=== PATIENT | female | born 1950 | race Caucasian/White ===

== ENCOUNTER → 2020-07-06 08:01 | Outpatient (CLI) | payer OTHER, SELFPAY ==
[2020-07-06 08:53] LABS: Cholesterol 264 mg/dL (140-199); HDL Cholesterol 60 mg/dL (40-60); LDL Cholesterol Calculated 194 mg/dL (<100); Triglycerides 49 mg/dL (35-150)
== END ==
PROVIDERS: PCP Nurse Practitioner; Referring Provider Nurse Practitioner; Visit Provider Nurse Practitioner
DX: E78.2 Mixed hyperlipidemia (principal); E03.9 Hypothyroidism, unspecified
CPT/HCPCS: 36415; 80061; 84443

== ENCOUNTER → 2020-07-28 12:40 | Outpatient (CLI) | payer OTHER, SELFPAY | PROVIDERS: PCP Nurse Practitioner; Referring Provider Nurse Practitioner; Visit Provider Nurse Practitioner | DX: Z13.820 Encounter for screening for osteoporosis (principal); M85.88 Other specified disorders of bone density and structure, other site; Z78.0 Asymptomatic menopausal state; E07.9 Disorder of thyroid, unspecified | CPT/HCPCS: 77080 ==

== ENCOUNTER → 2020-08-06 17:01 | Outpatient (CLI) | payer OTHER, SELFPAY ==
--- NOTE | 2020-08-06 17:04 | DI.MG.S_ITS ---
BILATERAL DIGITAL SCREENING MAMMOGRAM 3D/2D WITH CAD: 08/06/2020 CLINICAL: Routine screening. Comparison is made to exams dated: 12/03/2018 mammogram, 12/01/2017 mammogram, 11/21/2016 mammogram, 10/13/2014 mammogram, and 10/14/2015 mammogram - [facility]. There are scattered fibroglandular elements in both breasts. Current study was also evaluated with a Computer Aided Detection (CAD) system. There is a mole marker on both breasts. No significant masses, calcifications, or other findings are seen in either breast. There has been no significant interval change. IMPRESSION: NEGATIVE There is no mammographic evidence of malignancy. A 1 year screening mammogram is recommended. This exam was interpreted at Station ID: [id number]. NOTE: For mammograms, a report in lay terms will be sent to the patient. Approximately 15% of breast malignancies will not be visualized mammographically. In the management of a palpable breast mass, a negative mammogram must not discourage biopsy of a clinically suspicious lesion. Electronically Signed By: Chinmay [email or web address]/[email or web address]:08/07/2020 07:54:15 letter sent: Normal Exam ACR BI-RADS Category 1: Negative [id number]
== END ==
PROVIDERS: PCP Nurse Practitioner; Referring Provider Nurse Practitioner; Visit Provider Nurse Practitioner
DX: Z12.31 Encounter for screening mammogram for malignant neoplasm of breast (principal)
CPT/HCPCS: 77063; 77067

== ENCOUNTER → 2020-10-02 08:01 | Outpatient (CLI) | payer OTHER, SELFPAY ==
[2020-10-02 08:45] LABS: Cholesterol 259 mg/dL (140-199); HDL Cholesterol 55 mg/dL (40-60); LDL Cholesterol Calculated 191 mg/dL (<100); Triglycerides 64 mg/dL (35-150)
== END ==
PROVIDERS: PCP Nurse Practitioner; Referring Provider Nurse Practitioner; Visit Provider Nurse Practitioner
DX: E78.5 Hyperlipidemia, unspecified (principal)
CPT/HCPCS: 36415; 80061

== ENCOUNTER → 2020-11-26 15:55 | Outpatient (CLI) | payer OTHER, SELFPAY ==
[2020-11-26 16:59] LABS: BUN Creatinine Ratio 28.9 (6-22); Blood Urea Nitrogen 24 mg/dL (7-17); Calcium 9.6 mg/dL (8.4-10.2); Carbon Dioxide 33 mmol/L (22-32); Chloride 104 mmol/L (98-107); Estimated Glomerular Filt Rate > 60.0 mL/min (>60); Glucose 86 mg/dL (80-110); HEMOLYSIS < 15 (0-50); Potassium 4.1 mmol/L (3.4-5.1); Sodium 138 mmol/L (137-145)
== END ==
PROVIDERS: PCP Nurse Practitioner; Referring Provider Nurse Practitioner; Visit Provider Nurse Practitioner
DX: Z01.818 Encounter for other preprocedural examination (principal)
CPT/HCPCS: 36415; 80048

== ENCOUNTER → 2020-11-27 07:56 | Outpatient (CLI) | payer OTHER, SELFPAY ==
--- NOTE | 2020-11-27 08:10 | DI.CT.S_ITS ---
PROCEDURE: CT HEAD/BRAIN WO/W CON INDICATIONS: visual changes, loss of concentration TECHNIQUE: 4.5 mm thick angled axial sections acquired from the foramen magnum to the vertex both before and after the administration of intravenous contrast, with coronal and sagittal reformats. For radiation dose reduction, the following was used: automated exposure control, adjustment of mA and/or kV according to patient size. COMPARISON: [facility], CT, HEAD WITHOUT CONTRAST, 04/06/2015, 17:00. FINDINGS: Image quality: Excellent. CSF spaces: Basal cisterns are patent. No extra-axial fluid collections. Ventricles are symmetric in size and shape. Brain: No midline shift. No intracranial bleeds or masses. No abnormal intracranial enhancement. There is mild cerebral volume loss for age. There is mild periventricular white matter chronic small vessel ischemic change. There is intracranial internal carotid artery atherosclerosis. Skull and face: Calvarium and visualized facial bones appear intact, without suspicious lesions. Sinuses: Visualized sinuses and mastoids are clear. IMPRESSION: 1. No acute intracranial abnormalities. 2. Mild cerebral volume loss and chronic microvascular ischemic changes. Dictated by: Rome Deleon M.D. on 11/27/2020 at 8:46 Approved by: Rome Deleon M.D. on 11/27/2020 at 8:48
== END ==
PROVIDERS: PCP Nurse Practitioner; Referring Provider Nurse Practitioner; Visit Provider Nurse Practitioner
DX: H54.7 Unspecified visual loss (principal); R41.840 Attention and concentration deficit
CPT/HCPCS: 70470; Q9967

== ENCOUNTER 2020-12-31 08:15 | Outpatient (RCR) | payer OTHER, SELFPAY ==
--- NOTE | 2020-11-19 16:32 | PT.OIE ---
Current Diagnoses Unspecified urinary incontinence (11/19/20) Frequency of micturition (11/19/20) Past Medical History (Last Updated 10/06/20 @ 15:23 by KULWINDER Mansfield) Cardiac murmur, unspecified Excess ear wax Hyperlipidemia LDL goal <100 Hypothyroidism Infection, fungal, left foot Malaria (~1959) Measles (~1957) Mixed hyperlipidemia Mumps (~1957) Osteopenia after menopause Osteoporosis without current pathological fracture Plantar warts (~1999) Post-menopausal osteoporosis Skin problem (~2017) Urinary frequency Urinary incontinence Past Surgical History (Last Reviewed 10/06/20 @ 14:36 by KULWINDER Mansfield) Anesthesia History of appendectomy (~1954) History of cholecystectomy (~1982) History of hand surgery (~1990) History of removal of cyst (~2014) History of surgery (~1984) Hx of tonsillectomy Visit Care Team Role Provider Type KULWINDER Mans[place] Attending Provider Advanced Ui Ux Engineer Primary Care Provider Referring Provider Specialty: [facility] Address: [address] [place] [address], [facility] Email: [email or web address] Physical Therapy Initial Evaluation PT-OP-A Visit Information Start: 11/13/20 18:46 Freq: Status: Active Protocol: Document 11/19/20 08:16 LRN (Rec: 11/19/20 09:46 LRN [id number]) Out-Patient Physical Therapy Visit Information Visit Information Visit Type Initial Evaluation Visit Start Time 08:16 Visit Stop Time 09:00 Total Visit Minutes 44 Visit Number 1 Evaluation Information Evaluation Date 11/19/20 Precautions Precautions Neck pain Osteopenia Hypothyroid, PT-OP-B Current Condition Start: 11/13/20 18:46 Freq: Status: Active Protocol: Document 11/19/20 08:16 LRN (Rec: 11/19/20 09:46 LRN [id number]) Current Condition History of Current Condition Onset Date 1 year ago. Current Complaints urinary leakage after voiding and at night, & nighttime voiding. History of Current Condition Gets up 2-3x/night, has a little moisture on her underwear during the night and has dribbling after urinating . Prior Treatments and Tests None. Future Testing and Treatments Planned None Developmental History Developmental History When urinate and wipe, gets a drop or 2 more. Also, at night sometimes she notices a little bit of moisture on her underwear. Also she is getting up multiple times of the night. Has not given childbirth. No pregnancies. Lives [place] with spouse. Treatment Goals Patient/Caregiver Goals Pt goal is to deal with the urinary dripping and cut down on the amount of time getting up at night and be able to go back to sleep. Prior Functional Status Baseline Function- ADL's Independent Baseline Function- Mobility Independent Current Functional Impairments (Reported) Functional Limitations- ADL's Getting up too many times at night she is fatigued during the day. 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 Personal Factors Other Personal Factors That May Effect Hx of Gall bladder surgery Therapy/Recovery with visible well healed long scar on abdomen. Decreased normal exercise activity level due to COVID pandemic. PT-OP-C Subjective Start: 11/13/20 18:46 Freq: Status: Active Protocol: Document 11/19/20 08:16 LRN (Rec: 11/19/20 09:46 LRN [id number]) Patient Questionnaires Pelvic Pain and Urgency/Frequency Patient Symptom Scale Pelvic Pain Score 12 OP-PT Pain Assessment Comments Pain Comments No pain PT-OP-I Pelvic Floor Start: 11/13/20 18:46 Freq: Status: Active Protocol: Document 11/19/20 08:16 LRN (Rec: 11/19/20 09:46 LRN [id number]) Pelvic Floor Assessment Urine Urinary Symptoms Dribbling After Urination Other Urinary Symptoms Leaks sometimes upon standing after urinating, during the night. Leakage Size Small Leaks Per Day intermittent Voiding Frequency 4-5x/day Nocturia 2-3x/night Pads Used In 24 Hours none Bowel Bowel Surgery No Other Bowel Symptoms Sometimes, 1-2x/week because not walking enough. Bowel Movement Frequency Inconsistent, 1-2x/day and sometimes skips a day. [place]osh Stool Chart Comments Stools types vary sometimes 2, 4, or 6. PT-OP-J Posture/Palpation/Skin Start: 11/13/20 18:46 Freq: Status: Active Protocol: Document 11/19/20 08:16 LRN (Rec: 11/19/20 09:46 LRN [id number]) Posture Evaluation Position Standing Evaluation View all positions Head/C-Spine Posture Neutral Position L-Spine Posture Increased Lordosis Shoulder Posture (L) Elevated Comments Posture Comments Tight clothing around waist. Gall bladder scar (midline 2 below Xyphoid process, to L lower abdomen), pants slightly rotated left. PT-OP-K Range of Motion Start: 11/13/20 18:46 Freq: Status: Active Protocol: Document 11/19/20 08:16 LRN (Rec: 11/19/20 09:46 LRN [id number]) Lumbar Spine Range of Motion Lumbar Spine Active Degrees Testing Position Standing Flexion 100 Extension 20 Lateral Flexion Left 10 Lateral Flexion Right 10 Comments With Trunk flexion, hip flexion is 60 deg's, With Trunk extension, hip extension is 5 deg's. Hip Goniometric Range of Motion Hip Right Passive Straight Leg Raise 85 Extension 5 Internal Rotation 50 External Rotation 45 Comments + Jame Test Left Passive Straight Leg Raise 85 Extension 5 Internal Rotation 55 External Rotation 30 Comments + Jame Test PT-OP-M Strength Start: 11/13/20 18:46 Freq: Status: Active Protocol: Document 11/19/20 08:16 LRN (Rec: 11/19/20 09:46 LRN [id number]) Trunk Strength Trunk Manual Muscle Testing Testing Position Supine Core Stabilization Pt able to stabilize core from rotation with MMT of LE's. Hip Strength Hip Manual Muscle Testing Right Flexion (L2) 3+ Fair+ Extension (S1) 3+ Fair+ Abduction 3 Fair Adduction 5 Normal External Rotation 5 Normal Internal Rotation 5 Normal Left Flexion (L2) 3+ Fair+ Extension (S1) 3+ Fair+ Abduction 4+ Good+ Adduction 5 Normal External Rotation 5 Normal Internal Rotation 5 Normal PT-OP-Q Treatments Start: 11/13/20 18:46 Freq: Status: Active Protocol: Document 11/19/20 08:16 LRN (Rec: 11/19/20 09:46 LRN [id number]) Self-Care/Home Management Treatment Education Other Education Discussed results of evaluation, goals & POC. Educated pt in use of Bladder Diary and discussed specifics of completing (specifics of headings: counting of urination time, foods/drinks, etc). Educated pt in how bowels, trunk/hip mobility and strength impact PF stability and strength. Activities Self-Care/Home Management Activities Issued Bladder Diary with I/S for pt to complete 7 consecutive days. PT-OP-T Assessment and Plan Start: 11/13/20 18:46 Freq: Status: Active Protocol: Document 11/19/20 08:16 LRN (Rec: 11/19/20 09:46 LRN [id number]) Physical Therapy Assessment Rehab Potential Rehabilitation Potential Good Evaluation Complexity Number of Personal Factors/Comorbidities 1-2 Number of Body Systems Impaired 3 Clinical Presentation at Evaluation Evolving Impairments Impairments ROM,Soft Tissue Mobility, Strength,Transfers Other Impairments Urinary leakage after voiding and at nighttime, and increased nighttime voiding causing sleep disturbance and effecting daytime mental abilities. Goals Four Impairment Difficulty getting back to sleep after nighttime urination. Short Term Goal (STG) Educate pt on deep breathing relaxation techniques for pt to be able to return to sleep after getting up to urinate at nighttime. STG Duration 12/29/19 Dermatopathologist Goal (LTG) Pt will be able to return to sleep after nighttime voiding with less mental fatigue in the daytime due to lack of sleep from nighttime voiding. LTG Duration 02/17/21 Three Impairment Nighttime sleep disturbance (2 -3x/night) Short Term Goal (STG) Pt educated in foods/drinks to avoid and in urinary delay technique for bladder retraining. STG Duration 12/29/19 Dermatopathologist Goal (LTG) Decrease nighttime frequency to no more than 1x/night. LTG Duration 02/17/21 Two Impairment Urinary dribbling after initial voiding. Short Term Goal (STG) Educate pt in PF relaxation during voiding for full voiding after urinating to eliminate urinary dribbling on standing immediately after urinating, . STG Duration 12/29/19 Senior Care Goal (LTG) PF strength no less than 4/5 with pt no longer leaking at nighttime. LTG Duration 02/17/21 One Impairment Pt lacks appropriate self care HEP. Senior Care Goal (LTG) Pt will be independent in a self care HEP. LTG Duration 02/17/21 Assessment Summary Assessment Pt presents with urinary leakage after voiding and increased frequency of and minor urinary leakage at nighttime, causing pt to feel mentally fatigued during the day. The pt also indicates episodes of constipation that may be hindering her ability to remain continent during the day and increasing her nighttime voiding. The pt will benefit from skilled physical therapy for education in proper PF and bowel care, fluid management, and PF strengthening and relaxation. Physical Therapy Plan Frequency and Duration Frequency of Treatment 1x/Week Plan of Care Start Date 11/19/20 Plan of Care End Date 02/17/21 Therapeutic Interventions Therapeutic Interventions Home Exercise Program,Manual Therapy,Neuromuscular Re- education,Patient/Caregiver Education,Self-Care/Home Management,Soft Tissue Mobilization,Therapeutic Activities,Therapeutic Exercises Next Visit Focus/Plan Next Note Type Treatment Note Next Visit Plan Appropriate education after review of Bladder Diary, Assess PF strength and add appropriate HEP, abdominal STM & PF coordination with deep breathing, educate in proper deep breathing, PF training for relaxation and strengthening (quick flicks/ long holds), education in bowel massage, and PF strengthening/relaxation. EMG Biofeedback study for PF strength if needed.
--- NOTE | 2020-11-19 16:33 | PT.OPPOC ---
Physical, Occupational & Speech Therapy At [facility] Current Diagnoses Unspecified urinary incontinence (11/19/20) Frequency of micturition (11/19/20) Visit Care Team Role Provider Type KULWINDER [place] Attending Provider Advanced Executive Account Manager Primary Care Provider Referring Provider Specialty: Family Practice Address: [address] [place] [address], [facility] Email: [email or web address] Plan Of Care PT-OP-T Assessment and Plan Start: 11/13/20 18:46 Freq: Status: Active Protocol: Document 11/19/20 08:16 LRN (Rec: 11/19/20 09:46 LRN [id number]) Physical Therapy Assessment Rehab Potential Rehabilitation Potential Good Evaluation Complexity Number of Personal Factors/Comorbidities 1-2 Number of Body Systems Impaired 3 Clinical Presentation at Evaluation Evolving Impairments Impairments ROM,Soft Tissue Mobility, Strength,Transfers Other Impairments Urinary leakage after voiding and at nighttime, and increased nighttime voiding causing sleep disturbance and effecting daytime mental abilities. Goals Four Impairment Difficulty getting back to sleep after nighttime urination. Short Term Goal (STG) Educate pt on deep breathing relaxation techniques for pt to be able to return to sleep after getting up to urinate at nighttime. STG Duration 12/29/19 Player Development Executive Goal (LTG) Pt will be able to return to sleep after nighttime voiding with less mental fatigue in the daytime due to lack of sleep from nighttime voiding. LTG Duration 02/17/21 Three Impairment Nighttime sleep disturbance (2 -3x/night) Short Term Goal (STG) Pt educated in foods/drinks to avoid and in urinary delay technique for bladder retraining. STG Duration 12/29/19 Player Development Executive Goal (LTG) Decrease nighttime frequency to no more than 1x/night. LTG Duration 02/17/21 Two Impairment Urinary dribbling after initial voiding. Short Term Goal (STG) Educate pt in PF relaxation during voiding for full voiding after urinating to eliminate urinary dribbling on standing immediately after urinating, . STG Duration 12/29/19 Player Development Executive Goal (LTG) PF strength no less than 4/5 with pt no longer leaking at nighttime. LTG Duration 02/17/21 One Impairment Pt lacks appropriate self care HEP. Fdc Goal (LTG) Pt will be independent in a self care HEP. LTG Duration 02/17/21 Assessment Summary Assessment Pt presents with urinary leakage after voiding and increased frequency of and minor urinary leakage at nighttime, causing pt to feel mentally fatigued during the day. The pt also indicates episodes of constipation that may be hindering her ability to remain continent during the day and increasing her nighttime voiding. The pt will benefit from skilled physical therapy for education in proper PF and bowel care, fluid management, and PF strengthening and relaxation. Physical Therapy Plan Frequency and Duration Frequency of Treatment 1x/Week Plan of Care Start Date 11/19/20 Plan of Care End Date 02/17/21 Therapeutic Interventions Therapeutic Interventions Home Exercise Program,Manual Therapy,Neuromuscular Re- education,Patient/Caregiver Education,Self-Care/Home Management,Soft Tissue Mobilization,Therapeutic Activities,Therapeutic Exercises Next Visit Focus/Plan Next Note Type Treatment Note Next Visit Plan Appropriate education after review of Bladder Diary, Assess PF strength and add appropriate HEP, abdominal STM & PF coordination with deep breathing, educate in proper deep breathing, PF training for relaxation and strengthening (quick flicks/ long holds), education in bowel massage, and PF strengthening/relaxation. EMG Biofeedback study for PF strength if needed. Plan of Care Dates Plan of Care Start Date 11/19/20 Plan of Care End Date 02/17/21 Electronically Signed by: Wanda Daivs, PT 11/20/20 [id number] Please Sign and Return: I have reviewed this Plan of Care and certify that the skilled therapy services above are required to meet the patient?s needs. Physician Signature Date Printed Name and Credentials Clinical Instructor Signature Printed Name and Credentials
--- NOTE | 2020-11-26 12:12 | PT.OTN ---
Current Diagnoses Unspecified urinary incontinence (11/26/20) Frequency of micturition (11/26/20) Physical Therapy Treatment Note PT-OP-A Visit Information Start: 11/13/20 18:46 Freq: Status: Active Protocol: Document 11/26/20 08:17 LRN (Rec: 11/26/20 09:05 LRN [id number]) Out-Patient Physical Therapy Visit Information Visit Information Visit Type Treatment Note Visit Start Time 08:17 Visit Stop Time 09:05 Total Visit Minutes 48 Visit Number 2 Evaluation Information Evaluation Date 11/19/20 Precautions Precautions Neck pain Osteopenia Hypothyroid, PT-OP-B Current Condition Start: 11/13/20 18:46 Freq: Status: Active Protocol: Document 11/19/20 08:16 LRN (Rec: 11/19/20 09:46 LRN [id number]) Current Condition History of Current Condition Onset Date 1 year ago. Current Complaints urinary leakage after voiding and at night, & nighttime voiding. History of Current Condition Gets up 2-3x/night, has a little moisture on her underwear during the night and has dribbling after urinating . Prior Treatments and Tests None. Future Testing and Treatments Planned None Developmental History Developmental History When urinate and wipe, gets a drop or 2 more. Also, at night sometimes she notices a little bit of moisture on her underwear. Also she is getting up multiple times of the night. Has not given childbirth. No pregnancies. Lives [place] with spouse. Treatment Goals Patient/Caregiver Goals Pt goal is to deal with the urinary dripping and cut down on the amount of time getting up at night and be able to go back to sleep. Prior Functional Status Baseline Function- ADL's Independent Baseline Function- Mobility Independent Current Functional Impairments (Reported) Functional Limitations- ADL's Getting up too many times at night she is fatigued during the day. 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 Personal Factors Other Personal Factors That May Effect Hx of Gall bladder surgery Therapy/Recovery with visible well healed long scar on abdomen. Decreased normal exercise activity level due to COVID pandemic. PT-OP-C Subjective Start: 11/13/20 18:46 Freq: Status: Active Protocol: Document 11/26/20 08:17 LRN (Rec: 11/26/20 10:27 LRN [id number]) OP-PT Subjective Patient Comments Patient Comments Did Bladder Diary. States she likes drinking water, just doesn't. PT-OP-I Pelvic Floor Start: 11/13/20 18:46 Freq: Status: Active Protocol: Document 11/19/20 08:16 LRN (Rec: 11/19/20 09:46 LRN [id number]) Pelvic Floor Assessment Urine Urinary Symptoms Dribbling After Urination Other Urinary Symptoms Leaks sometimes upon standing after urinating, during the night. Leakage Size Small Leaks Per Day intermittent Voiding Frequency 4-5x/day Nocturia 2-3x/night Pads Used In 24 Hours none Bowel Bowel Surgery No Other Bowel Symptoms Sometimes, 1-2x/week because not walking enough. Bowel Movement Frequency Inconsistent, 1-2x/day and sometimes skips a day. [place] Stool Chart Comments Stools types vary sometimes 2, 4, or 6. PT-OP-J Posture/Palpation/Skin Start: 11/13/20 18:46 Freq: Status: Active Protocol: Document 11/19/20 08:16 LRN (Rec: 11/19/20 09:46 LRN [id number]) Posture Evaluation Position Standing Evaluation View all positions Head/C-Spine Posture Neutral Position L-Spine Posture Increased Lordosis Shoulder Posture (L) Elevated Comments Posture Comments Tight clothing around waist. Gall bladder scar (midline 2 below Xyphoid process, to L lower abdomen), pants slightly rotated left. PT-OP-K Range of Motion Start: 11/13/20 18:46 Freq: Status: Active Protocol: Document 11/19/20 08:16 LRN (Rec: 11/19/20 09:46 LRN [id number]) Lumbar Spine Range of Motion Lumbar Spine Active Degrees Testing Position Standing Flexion 100 Extension 20 Lateral Flexion Left 10 Lateral Flexion Right 10 Comments With Trunk flexion, hip flexion is 60 deg's, With Trunk extension, hip extension is 5 deg's. Hip Goniometric Range of Motion Hip Right Passive Straight Leg Raise 85 Extension 5 Internal Rotation 50 External Rotation 45 Comments + Jame Test Left Passive Straight Leg Raise 85 Extension 5 Internal Rotation 55 External Rotation 30 Comments + Jame Test PT-OP-M Strength Start: 11/13/20 18:46 Freq: Status: Active Protocol: Document 11/19/20 08:16 LRN (Rec: 11/19/20 09:46 LRN [id number]) Trunk Strength Trunk Manual Muscle Testing Testing Position Supine Core Stabilization Pt able to stabilize core from rotation with MMT of LE's. Hip Strength Hip Manual Muscle Testing Right Flexion (L2) 3+ Fair+ Extension (S1) 3+ Fair+ Abduction 3 Fair Adduction 5 Normal External Rotation 5 Normal Internal Rotation 5 Normal Left Flexion (L2) 3+ Fair+ Extension (S1) 3+ Fair+ Abduction 4+ Good+ Adduction 5 Normal External Rotation 5 Normal Internal Rotation 5 Normal PT-OP-Q Treatments Start: 11/13/20 18:46 Freq: Status: Active Protocol: Document 11/26/20 08:17 LRN (Rec: 11/26/20 09:05 LRN [id number]) Self-Care/Home Management Treatment Education Patient Education Home Exercise Program Other Education Reviewed Bladder diary, discussed at length and made recommended changes in fluid, food intake (type of drinks, timing of drinking, foods, etc ). Education in bladder irritants and none irritant, and their effects on urination and bowel movements. Discussed norms for voidiing and bowel movements/types. Educated pt in coffee alternatives and strategies to improve fluid intake. (Pt noted stool types: Hard = type 2, Med type 4, & Soft = 5). Educated pt in pelvic anatomy and effect of organs on each other. Activities Self-Care/Home Management Activities Issued & reviewed at length * Foods & Beverages/Bladder Diet Theories/Suggestions * Bowel Program * Pelvic anatomy * Self bowel massage. Issued & reviewed handouts for Foods to Avoid, Bladder Irritants, Bowel Program PF Anatomy Bowel Massage PT-OP-T Assessment and Plan Start: 11/13/20 18:46 Freq: Status: Active Protocol: Document 11/26/20 08:17 LRN (Rec: 11/26/20 09:05 N [id number]) Physical Therapy Assessment Goals Four Impairment Difficulty getting back to sleep after nighttime urination. Short Term Goal (STG) Educate pt on deep breathing relaxation techniques for pt to be able to return to sleep after getting up to urinate at nighttime. STG Duration 12/29/19 Core Winding Operator Goal (LTG) Pt will be able to return to sleep after nighttime voiding with less mental fatigue in the daytime due to lack of sleep from nighttime voiding. LTG Duration 02/17/21 Three Impairment Nighttime sleep disturbance (2 -3x/night) Short Term Goal (STG) Pt educated in foods/drinks to avoid and in urinary delay technique for bladder retraining. STG Duration 12/29/19 (11/26/20: MET GOAL) Penitentiary Goal (LTG) Decrease nighttime frequency to no more than 1x/night. LTG Duration 02/17/21 Two Impairment Urinary dribbling after initial voiding. Short Term Goal (STG) Educate pt in PF relaxation during voiding for full voiding after urinating to eliminate urinary dribbling on standing immediately after urinating, . STG Duration 12/29/19 Penitentiary Goal (LTG) PF strength no less than 4/5 with pt no longer leaking at nighttime. LTG Duration 02/17/21 One Impairment Pt lacks appropriate self care HEP. Core Winding Operator Goal (LTG) Pt will be independent in a self care HEP. EDUC: *Foods & Beverages/ Bladder Diet Theories/ Suggestions (example-bladder irritatants), * Bowel Program, * Pelvic anatomy, * Self bowel massage. HEP: * Bowel Program, * Self bowel massage. LTG Duration 02/17/21 (11/26/20: Progressing) Assessment Summary Assessment 70 yo female with urinary dribbling after urinatioin and increased nighttime freq of urination. Pt was receptive to information regarding bladder irritants and improving fiber intake. Pt had questions regarding timeing of taking of supplements in relation to her thyroid medications and was referred to her primary care physician for discussion whom she will be seeing today. Physical Therapy Plan Frequency and Duration Frequency of Treatment 1x/Week Plan of Care Start Date 11/19/20 Plan of Care End Date 02/17/21 Next Visit Focus/Plan Next Note Type Treatment Note Next Visit Plan Assess PF strength and add appropriate HEP, abdominal STM & PF coordination with deep breathing, educate in proper deep breathing, PF training for relaxation and strengthening (quick flicks/ long holds), education in bowel massage, and PF strengthening/relaxation. EMG Biofeedback study for PF strength if needed.
--- NOTE | 2020-12-03 15:45 | PT.OTN ---
Current Diagnoses Unspecified urinary incontinence (12/03/20) Frequency of micturition (12/03/20) Physical Therapy Treatment Note PT-OP-A Visit Information Start: 11/13/20 18:46 Freq: Status: Active Protocol: Document 12/03/20 08:15 LRN (Rec: 12/03/20 09:09 LRN [id number]) Out-Patient Physical Therapy Visit Information Visit Information Visit Type Treatment Note Visit Start Time 08:15 Visit Stop Time 09:08 Total Visit Minutes 40 Visit Number 3 Evaluation Information Evaluation Date 11/19/20 Precautions Precautions Neck pain Osteopenia Hypothyroid, PT-OP-B Current Condition Start: 11/13/20 18:46 Freq: Status: Active Protocol: Document 11/19/20 08:16 LRN (Rec: 11/19/20 09:46 LRN [id number]) Current Condition History of Current Condition Onset Date 1 year ago. Current Complaints urinary leakage after voiding and at night, & nighttime voiding. History of Current Condition Gets up 2-3x/night, has a little moisture on her underwear during the night and has dribbling after urinating . Prior Treatments and Tests None. Future Testing and Treatments Planned None Developmental History Developmental History When urinate and wipe, gets a drop or 2 more. Also, at night sometimes she notices a little bit of moisture on her underwear. Also she is getting up multiple times of the night. Has not given childbirth. No pregnancies. Lives [place] with spouse. Treatment Goals Patient/Caregiver Goals Pt goal is to deal with the urinary dripping and cut down on the amount of time getting up at night and be able to go back to sleep. Prior Functional Status Baseline Function- ADL's Independent Baseline Function- Mobility Independent Current Functional Impairments (Reported) Functional Limitations- ADL's Getting up too many times at night she is fatigued during the day. 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 Personal Factors Other Personal Factors That May Effect Hx of Gall bladder surgery Therapy/Recovery with visible well healed long scar on abdomen. Decreased normal exercise activity level due to COVID pandemic. PT-OP-C Subjective Start: 11/13/20 18:46 Freq: Status: Active Protocol: Document 12/03/20 08:15 LRN (Rec: 12/03/20 09:09 LRN [id number]) OP-PT Subjective Patient Comments Patient Comments Last week was told she may have had a TIA and has been started on Statins due to high cholesterol; therefore sleeping better and not getting up as many times at night. PT-OP-I Pelvic Floor Start: 11/13/20 18:46 Freq: Status: Active Protocol: Document 11/19/20 08:16 LRN (Rec: 11/19/20 09:46 LRN [id number]) Pelvic Floor Assessment Urine Urinary Symptoms Dribbling After Urination Other Urinary Symptoms Leaks sometimes upon standing after urinating, during the night. Leakage Size Small Leaks Per Day intermittent Voiding Frequency 4-5x/day Nocturia 2-3x/night Pads Used In 24 Hours none Bowel Bowel Surgery No Other Bowel Symptoms Sometimes, 1-2x/week because not walking enough. Bowel Movement Frequency Inconsistent, 1-2x/day and sometimes skips a day. [place] Stool Chart Comments Stools types vary sometimes 2, 4, or 6. PT-OP-J Posture/Palpation/Skin Start: 11/13/20 18:46 Freq: Status: Active Protocol: Document 11/19/20 08:16 LRN (Rec: 11/19/20 09:46 LRN [id number]) Posture Evaluation Position Standing Evaluation View all positions Head/C-Spine Posture Neutral Position L-Spine Posture Increased Lordosis Shoulder Posture (L) Elevated Comments Posture Comments Tight clothing around waist. Gall bladder scar (midline 2 below Xyphoid process, to L lower abdomen), pants slightly rotated left. PT-OP-K Range of Motion Start: 11/13/20 18:46 Freq: Status: Active Protocol: Document 11/19/20 08:16 LRN (Rec: 11/19/20 09:46 LRN [id number]) Lumbar Spine Range of Motion Lumbar Spine Active Degrees Testing Position Standing Flexion 100 Extension 20 Lateral Flexion Left 10 Lateral Flexion Right 10 Comments With Trunk flexion, hip flexion is 60 deg's, With Trunk extension, hip extension is 5 deg's. Hip Goniometric Range of Motion Hip Right Passive Straight Leg Raise 85 Extension 5 Internal Rotation 50 External Rotation 45 Comments + Jame Test Left Passive Straight Leg Raise 85 Extension 5 Internal Rotation 55 External Rotation 30 Comments + Jame Test PT-OP-M Strength Start: 11/13/20 18:46 Freq: Status: Active Protocol: Document 11/19/20 08:16 LRN (Rec: 11/19/20 09:46 LRN [id number]) Trunk Strength Trunk Manual Muscle Testing Testing Position Supine Core Stabilization Pt able to stabilize core from rotation with MMT of LE's. Hip Strength Hip Manual Muscle Testing Right Flexion (L2) 3+ Fair+ Extension (S1) 3+ Fair+ Abduction 3 Fair Adduction 5 Normal External Rotation 5 Normal Internal Rotation 5 Normal Left Flexion (L2) 3+ Fair+ Extension (S1) 3+ Fair+ Abduction 4+ Good+ Adduction 5 Normal External Rotation 5 Normal Internal Rotation 5 Normal PT-OP-Q Treatments Start: 11/13/20 18:46 Freq: Status: Active Protocol: Document 12/03/20 08:15 LRN (Rec: 12/03/20 09:09 LRN [id number]) Therapeutic Exercises Supine Exercises Deep Breathing Supine Exercise Name Deep Breathing Reps/Minutes 4' Comments Extra time for training Self-Care/Home Management Treatment Education Patient Education Body Mechanics Other Education Reviewed and discussed at length bladder diary and changes that could be made. Discussed foods/fluids (ex: before bed, with ex, types of foods/drinks). Discussed night routine. Educated pt in breathing modifications of bending to prevent urinary leakage, and practiced with various transfers and movements. Activities Self-Care/Home Management Activities Issued & reviewed: Diaphragmatic Breathing with extra time training to breath through abdomen and not chest. Visual feedback needed & self phys feedback used. I/S to change nighttime routine with voiding before bedtime and minimizing bladder irritants. PT-OP-T Assessment and Plan Start: 11/13/20 18:46 Freq: Status: Active Protocol: Document 12/03/20 08:15 LRN (Rec: 12/03/20 09:09 LR [id number]) Physical Therapy Assessment Goals Four Impairment Difficulty getting back to sleep after nighttime urination. Short Term Goal (STG) Educate pt on deep breathing relaxation techniques for pt to be able to return to sleep after getting up to urinate at nighttime. STG Duration 12/29/19 Life Underwriter Goal (LTG) Pt will be able to return to sleep after nighttime voiding with less mental fatigue in the daytime due to lack of sleep from nighttime voiding. LTG Duration 02/17/21 Three Impairment Nighttime sleep disturbance (2 -3x/night) Short Term Goal (STG) Pt educated in foods/drinks to avoid and in urinary delay technique for bladder retraining. STG Duration 12/29/19 (11/26/20: MET GOAL) Longterm Goal (LTG) Decrease nighttime frequency to no more than 1x/night. LTG Duration 02/17/21 (12/03/20: Improving , 1x woke once in the night) Two Impairment Urinary dribbling after initial voiding. Short Term Goal (STG) Educate pt in PF relaxation during voiding for full voiding after urinating to eliminate urinary dribbling on standing immediately after urinating, . STG Duration 12/29/19 Longterm Goal (LTG) PF strength no less than 4/5 with pt no longer leaking at nighttime. LTG Duration 02/17/21 One Impairment Pt lacks appropriate self care HEP. Longterm Goal (LTG) Pt will be independent in a self care HEP. Issued: HEP: Diaphragmatic breathing , * Bowel Program, * Self bowel massage. EDUC: *Foods & Beverages/ Bladder Diet Theories/ Suggestions (example-bladder irritatants), * Bowel Program, * Pelvic anatomy, * Self bowel massage. LTG Duration 02/17/21 (11/26/20: Progressing) Assessment Summary Assessment Pt has poor awareness and difficulty with slow deep breathing with fast breath (3 ) and chest breathing, further training needed. Physical Therapy Plan Frequency and Duration Frequency of Treatment 1x/Week Plan of Care Start Date 11/19/20 Plan of Care End Date 02/17/21 Next Visit Focus/Plan Next Note Type Treatment Note Next Visit Plan Assess PF strength manual (if pt agreeable) and add appropriate HEP (Kegels vs relaxation), abdominal STM & review PF coordination with deep breathing, PF training for relaxation and strengthening (quick flicks/ long holds), education in bowel massage, and PF strengthening/relaxation. EMG Biofeedback study for PF strength if needed.
--- NOTE | 2020-12-10 09:30 | PT.OTN ---
Current Diagnoses Unspecified urinary incontinence (12/10/20) Frequency of micturition (12/10/20) Physical Therapy Treatment Note PT-OP-A Visit Information Start: 11/13/20 18:46 Freq: Status: Active Protocol: Document 12/10/20 08:14 LRN (Rec: 12/10/20 09:03 LRN [id number]) Out-Patient Physical Therapy Visit Information Visit Information Visit Type Treatment Note Visit Start Time 08:14 Visit Stop Time 08:56 Total Visit Minutes 42 Visit Number 4 Evaluation Information Evaluation Date 11/19/20 Precautions Precautions Neck pain Osteopenia Hypothyroid, PT-OP-B Current Condition Start: 11/13/20 18:46 Freq: Status: Active Protocol: Document 11/19/20 08:16 LRN (Rec: 11/19/20 09:46 LRN [id number]) Current Condition History of Current Condition Onset Date 1 year ago. Current Complaints urinary leakage after voiding and at night, & nighttime voiding. History of Current Condition Gets up 2-3x/night, has a little moisture on her underwear during the night and has dribbling after urinating . Prior Treatments and Tests None. Future Testing and Treatments Planned None Developmental History Developmental History When urinate and wipe, gets a drop or 2 more. Also, at night sometimes she notices a little bit of moisture on her underwear. Also she is getting up multiple times of the night. Has not given childbirth. No pregnancies. Lives [place] with spouse. Treatment Goals Patient/Caregiver Goals Pt goal is to deal with the urinary dripping and cut down on the amount of time getting up at night and be able to go back to sleep. Prior Functional Status Baseline Function- ADL's Independent Baseline Function- Mobility Independent Current Functional Impairments (Reported) Functional Limitations- ADL's Getting up too many times at night she is fatigued during the day. 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 Personal Factors Other Personal Factors That May Effect Hx of Gall bladder surgery Therapy/Recovery with visible well healed long scar on abdomen. Decreased normal exercise activity level due to COVID pandemic. PT-OP-C Subjective Start: 11/13/20 18:46 Freq: Status: Active Protocol: Document 12/10/20 08:14 LRN (Rec: 12/10/20 09:03 LRN [id number]) OP-PT Subjective Patient Comments Patient Comments Feels her voiding is getting stretched out. States medium stools are type 4 and soft stools are type 5-6. PT-OP-I Pelvic Floor Start: 11/13/20 18:46 Freq: Status: Active Protocol: Document 11/19/20 08:16 LRN (Rec: 11/19/20 09:46 LRN [id number]) Pelvic Floor Assessment Urine Urinary Symptoms Dribbling After Urination Other Urinary Symptoms Leaks sometimes upon standing after urinating, during the night. Leakage Size Small Leaks Per Day intermittent Voiding Frequency 4-5x/day Nocturia 2-3x/night Pads Used In 24 Hours none Bowel Bowel Surgery No Other Bowel Symptoms Sometimes, 1-2x/week because not walking enough. Bowel Movement Frequency Inconsistent, 1-2x/day and sometimes skips a day. [place] Stool Chart Comments Stools types vary sometimes 2, 4, or 6. PT-OP-J Posture/Palpation/Skin Start: 11/13/20 18:46 Freq: Status: Active Protocol: Document 11/19/20 08:16 LRN (Rec: 11/19/20 09:46 LRN [id number]) Posture Evaluation Position Standing Evaluation View all positions Head/C-Spine Posture Neutral Position L-Spine Posture Increased Lordosis Shoulder Posture (L) Elevated Comments Posture Comments Tight clothing around waist. Gall bladder scar (midline 2 below Xyphoid process, to L lower abdomen), pants slightly rotated left. PT-OP-K Range of Motion Start: 11/13/20 18:46 Freq: Status: Active Protocol: Document 11/19/20 08:16 LRN (Rec: 11/19/20 09:46 LRN [id number]) Lumbar Spine Range of Motion Lumbar Spine Active Degrees Testing Position Standing Flexion 100 Extension 20 Lateral Flexion Left 10 Lateral Flexion Right 10 Comments With Trunk flexion, hip flexion is 60 deg's, With Trunk extension, hip extension is 5 deg's. Hip Goniometric Range of Motion Hip Right Passive Straight Leg Raise 85 Extension 5 Internal Rotation 50 External Rotation 45 Comments + Jame Test Left Passive Straight Leg Raise 85 Extension 5 Internal Rotation 55 External Rotation 30 Comments + Jame Test PT-OP-M Strength Start: 11/13/20 18:46 Freq: Status: Active Protocol: Document 11/19/20 08:16 LRN (Rec: 11/19/20 09:46 LRN [id number]) Trunk Strength Trunk Manual Muscle Testing Testing Position Supine Core Stabilization Pt able to stabilize core from rotation with MMT of LE's. Hip Strength Hip Manual Muscle Testing Right Flexion (L2) 3+ Fair+ Extension (S1) 3+ Fair+ Abduction 3 Fair Adduction 5 Normal External Rotation 5 Normal Internal Rotation 5 Normal Left Flexion (L2) 3+ Fair+ Extension (S1) 3+ Fair+ Abduction 4+ Good+ Adduction 5 Normal External Rotation 5 Normal Internal Rotation 5 Normal PT-OP-Q Treatments Start: 11/13/20 18:46 Freq: Status: Active Protocol: Document 12/10/20 08:14 LRN (Rec: 12/10/20 09:03 LRN [id number]) Therapeutic Exercises Supine Exercises Kegels Supine Exercise Name Kegels in abscence of substitute ms. Reps/Minutes 7' Comments Verbal, phys and visual imagery used to train. Deep Breathing Supine Exercise Name Deep Breathing Reps/Minutes 10' Comments Used verbal, phys, visual feedback for training Self-Care/Home Management Treatment Education Patient Education Body Mechanics Other Education Reviewed new week's Bladder diary and discussed at length observations. Discussed changes to be made in diet and fluids, discussed areas for pt to concentrate on when recording diary. Body Mechanics training for proper breathing during transfers. Activities Self-Care/Home Management Activities I/S pt to do Bowel massage morning and 1 hr after eating and inbetween as often as needed depending on # of BM per day and fluid intake history. PT-OP-T Assessment and Plan Start: 11/13/20 18:46 Freq: Status: Active Protocol: Document 12/10/20 08:14 LRN (Rec: 12/10/20 09:03 LRN [id number]) Physical Therapy Assessment Goals Four Impairment Difficulty getting back to sleep after nighttime urination. Short Term Goal (STG) Educate pt on deep breathing relaxation techniques for pt to be able to return to sleep after getting up to urinate at nighttime. STG Duration 12/29/19 Client Solutions Manager Goal (LTG) Pt will be able to return to sleep after nighttime voiding with less mental fatigue in the daytime due to lack of sleep from nighttime voiding. LTG Duration 02/17/21 Three Impairment Nighttime sleep disturbance (2 -3x/night) Short Term Goal (STG) Pt educated in foods/drinks to avoid and in urinary delay technique for bladder retraining. STG Duration 12/29/19 (11/26/20: MET GOAL) Client Solutions Manager Goal (LTG) Decrease nighttime frequency to no more than 1x/night. (12/10/20: Pt able to delay nighttime voiding once). LTG Duration 02/17/21 (12/10/20: Improving ) Two Impairment Urinary dribbling after initial voiding. Short Term Goal (STG) Educate pt in PF relaxation during voiding for full voiding after urinating to eliminate urinary dribbling on standing immediately after urinating. STG Duration 12/29/19 Client Solutions Manager Goal (LTG) PF strength no less than 4/5 with pt no longer leaking at nighttime. LTG Duration 02/17/21 One Impairment Pt lacks appropriate self care HEP. Retirement Goal (LTG) Pt will be independent in a self care HEP. Issued: HEP: Diaphragmatic breathing , * Bowel Program, * Self bowel massage. EDUC: *Foods & Beverages/ Bladder Diet Theories/ Suggestions (example-bladder irritatants), * Bowel Program, * Pelvic anatomy, * Self bowel massage. *I/S pt to increase doing Bowel massage morning and 1 hr after eating & inbetween as often as needed . LTG Duration 02/17/21 (11/26/20: Progressing) Assessment Summary Assessment Pt is a 70 yo female who presents with urinary leakage after voiding and increased frequency of and minor urinary leakage at nighttime, causing pt to feel mentally fatigued during the day. Per bladder diary review, pt's urinary dribbling before and after having BM would indicate involvement of GI system/BM's in her frequent urinary voiding. She notes her stools are type 4 typically and for a few days showed BM's every time she urinary voided ( voiding both before and after her BM). Not sure if her bladder or bowels are driving her need to use bathroom, pt to track this coming week. Her pants appear tight around the waist, but is not noticed by pt. She is working on retraining to not get up during the night, but her urination times are rather long; therefore the pt may benefit from lymph massage before bedtime to max void before sleep. Pt leakage at nighttime may be associated to bowel system as well as PF dysfunction. Pt is agreeable to having internal PF assessment. Pt has much trouble with proper deep breathing and was not able to do properly after training. Good understanding of breath work with transfers after training. Physical Therapy Plan Frequency and Duration Frequency of Treatment 1x/Week Plan of Care Start Date 11/19/20 Plan of Care End Date 02/17/21 Next Visit Focus/Plan Next Note Type Treatment Note Next Visit Plan To start: manually assess PF strength and review bladder diary for dinkey driver of her toileting and dribble times. Add appropriate HEP (Kegels vs relaxation), add LE lymph massage for pt to do before bedtime, review PF coordination with deep breathing, PF training for relaxation and strengthening ( quick flicks/long holds), education in PF strengthening /relaxation as appropriate following assessment. Abdominal STM for a L rotated trunk. EMG Biofeedback study for PF strength if needed.
--- NOTE | 2020-12-18 09:19 | PT.OTN ---
Current Diagnoses Unspecified urinary incontinence (12/18/20) Frequency of micturition (12/18/20) Physical Therapy Treatment Note PT-OP-A Visit Information Start: 11/13/20 18:46 Freq: Status: Active Protocol: Document 12/18/20 08:16 LRN (Rec: 12/18/20 09:17 LRN [id number]) Out-Patient Physical Therapy Visit Information Visit Information Visit Type Treatment Note Visit Start Time 08:16 Visit Stop Time 08:57 Total Visit Minutes 41 Visit Number 5 Evaluation Information Evaluation Date 11/19/20 Precautions Precautions Neck pain Osteopenia Hypothyroid, PT-OP-B Current Condition Start: 11/13/20 18:46 Freq: Status: Active Protocol: Document 11/19/20 08:16 LRN (Rec: 11/19/20 09:46 LRN [id number]) Current Condition History of Current Condition Onset Date 1 year ago. Current Complaints urinary leakage after voiding and at night, & nighttime voiding. History of Current Condition Gets up 2-3x/night, has a little moisture on her underwear during the night and has dribbling after urinating . Prior Treatments and Tests None. Future Testing and Treatments Planned None Developmental History Developmental History When urinate and wipe, gets a drop or 2 more. Also, at night sometimes she notices a little bit of moisture on her underwear. Also she is getting up multiple times of the night. Has not given childbirth. No pregnancies. Lives [facility] with spouse. Treatment Goals Patient/Caregiver Goals Pt goal is to deal with the urinary dripping and cut down on the amount of time getting up at night and be able to go back to sleep. Prior Functional Status Baseline Function- ADL's Independent Baseline Function- Mobility Independent Current Functional Impairments (Reported) Functional Limitations- ADL's Getting up too many times at night she is fatigued during the day. 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 Personal Factors Other Personal Factors That May Effect Hx of Gall bladder surgery Therapy/Recovery with visible well healed long scar on abdomen. Decreased normal exercise activity level due to COVID pandemic. PT-OP-C Subjective Start: 11/13/20 18:46 Freq: Status: Active Protocol: Document 12/18/20 08:16 LRN (Rec: 12/18/20 09:17 LRN [id number]) OP-PT Subjective Patient Comments Patient Comments States she is sleeping better, waking only 1x/night mostly, bowel movements are more regular. Eating more fiber. Not dribbling with urination. Not leaking after voiding anymore. Bowel types are 3 & 4. PT-OP-I Pelvic Floor Start: 11/13/20 18:46 Freq: Status: Active Protocol: Document 11/19/20 08:16 LRN (Rec: 11/19/20 09:46 LRN [id number]) Pelvic Floor Assessment Urine Urinary Symptoms Dribbling After Urination Other Urinary Symptoms Leaks sometimes upon standing after urinating, during the night. Leakage Size Small Leaks Per Day intermittent Voiding Frequency 4-5x/day Nocturia 2-3x/night Pads Used In 24 Hours none Bowel Bowel Surgery No Other Bowel Symptoms Sometimes, 1-2x/week because not walking enough. Bowel Movement Frequency Inconsistent, 1-2x/day and sometimes skips a day. [place] Stool Chart Comments Stools types vary sometimes 2, 4, or 6. PT-OP-J Posture/Palpation/Skin Start: 11/13/20 18:46 Freq: Status: Active Protocol: Document 11/19/20 08:16 LRN (Rec: 11/19/20 09:46 LRN [id number]) Posture Evaluation Position Standing Evaluation View all positions Head/C-Spine Posture Neutral Position L-Spine Posture Increased Lordosis Shoulder Posture (L) Elevated Comments Posture Comments Tight clothing around waist. Gall bladder scar (midline 2 below Xyphoid process, to L lower abdomen), pants slightly rotated left. PT-OP-K Range of Motion Start: 11/13/20 18:46 Freq: Status: Active Protocol: Document 11/19/20 08:16 LRN (Rec: 11/19/20 09:46 LRN [id number]) Lumbar Spine Range of Motion Lumbar Spine Active Degrees Testing Position Standing Flexion 100 Extension 20 Lateral Flexion Left 10 Lateral Flexion Right 10 Comments With Trunk flexion, hip flexion is 60 deg's, With Trunk extension, hip extension is 5 deg's. Hip Goniometric Range of Motion Hip Right Passive Straight Leg Raise 85 Extension 5 Internal Rotation 50 External Rotation 45 Comments + Jame Test Left Passive Straight Leg Raise 85 Extension 5 Internal Rotation 55 External Rotation 30 Comments + Jame Test PT-OP-M Strength Start: 11/13/20 18:46 Freq: Status: Active Protocol: Document 11/19/20 08:16 LRN (Rec: 11/19/20 09:46 LRN [id number]) Trunk Strength Trunk Manual Muscle Testing Testing Position Supine Core Stabilization Pt able to stabilize core from rotation with MMT of LE's. Hip Strength Hip Manual Muscle Testing Right Flexion (L2) 3+ Fair+ Extension (S1) 3+ Fair+ Abduction 3 Fair Adduction 5 Normal External Rotation 5 Normal Internal Rotation 5 Normal Left Flexion (L2) 3+ Fair+ Extension (S1) 3+ Fair+ Abduction 4+ Good+ Adduction 5 Normal External Rotation 5 Normal Internal Rotation 5 Normal PT-OP-Q Treatments Start: 11/13/20 18:46 Freq: Status: Active Protocol: Document 12/18/20 08:16 LRN (Rec: 12/18/20 09:17 LRN [id number]) Therapeutic Exercises Supine Exercises Hip Flexor stretch Supine Exercise Name Hip Flexor stretch reviewed Piriformis positioning stretch Supine Exercise Name Stretch for hip ER in Piriformis stretch position Side bilateral Reps/Minutes 4' Comments Extra time to determine max stretch. Found not needed. Lateral Hip stretch Supine Exercise Name Lateral Hip stretch Side bilateral Reps/Minutes 3' Comments Extra time for training Fig 4 stretch Supine Exercise Name Fig 4 stretch Side bilateral Reps/Minutes 3' Comments Extra time for training Happy Baby Pose Supine Exercise Name Happy Baby Pose stretch Reps/Minutes 3' Comments Extra time for training of max stretch Deep Breathing Supine Exercise Name Deep Breathing Reps/Minutes 6' Comments Used verbal, phys, visual feedback for training Standing Exercises Hip Flexor stretch Standing Exercise Name Hip Flexor stretch reviewed Self-Care/Home Management Treatment Education Other Education Reviewed and discussed bladder diary, noting changes with urination as she has improved bowel function. Educated pt in food types for firming stool and discussed reasons for diarrhea after constipation. Discussed sleeping havits and pt now taking Statin that has helped her to sleep. Activities Self-Care/Home Management Activities Issued & reviewed HEP: SUPINE: *Hip fig 4 stretch, * Lateral hip stretch, *Hip flexor stretch STANDING: Hip flexor stretch PT-OP-T Assessment and Plan Start: 11/13/20 18:46 Freq: Status: Active Protocol: Document 12/18/20 08:16 LRN (Rec: 12/18/20 09:17 LRN [id number]) Physical Therapy Assessment Goals Four Impairment Difficulty getting back to sleep after nighttime urination. Short Term Goal (STG) Educate pt on deep breathing relaxation techniques for pt to be able to return to sleep after getting up to urinate at nighttime. STG Duration 12/29/19 (12/18/20: MET GOAL) Paint Stock Clerk Goal (LTG) Pt will be able to return to sleep after nighttime voiding with less mental fatigue in the daytime due to lack of sleep from nighttime voiding. LTG Duration 02/17/21 (12/18/20: MET GOAL ) Three Impairment Nighttime sleep disturbance (2 -3x/night) Short Term Goal (STG) Pt educated in foods/drinks to avoid and in urinary delay technique for bladder retraining. STG Duration 12/29/19 (11/26/20: MET GOAL) Alf Goal (LTG) Decrease nighttime frequency to no more than 1x/night. (12/10/20: Pt able to delay nighttime voiding once). LTG Duration 02/17/21 (12/18/20: MET GOAL ) Two Impairment Urinary dribbling after initial voiding. Short Term Goal (STG) Educate pt in PF relaxation during voiding for full voiding after urinating to eliminate urinary dribbling on standing immediately after urinating. (12/18/20: Pt feels the only time she may dribble is if she comes into house after extreme cold) STG Duration 12/29/19 (12/18/20: MET GOAL) Paint Stock Clerk Goal (LTG) PF strength no less than 4/5 with pt no longer leaking at nighttime. LTG Duration 02/17/21 (12/18/20: Strength not assessed, but not leaking One Impairment Pt lacks appropriate self care HEP. Alf Goal (LTG) Pt will be independent in a self care HEP. Issued: HEP: Diaphragmatic breathing , * Bowel Program, * Self bowel massage. EDUC: *Foods & Beverages/ Bladder Diet Theories/ Suggestions (example-bladder irritatants), * Bowel Program, * Pelvic anatomy, * Self bowel massage. *I/S pt to increase doing Bowel massage morning and 1 hr after eating & inbetween as often as needed . SUPINE: *Hip fig 4 stretch, * Lateral hip stretch, *Hip flexor stretch STANDING: Hip flexor stretch LTG Duration 02/17/21 (12/18/20: Progressing) Progress Towards Goals Progress Comments Goals 3 & 4: MET. LTG #2: Partially met due to no being able to verify PF strength (pt choosing not to have vaginal assessment). Goal #1: Progressed. Assessment Summary Assessment Reviewed bladder diary. Not leaking after voiding, bowels are regular. Bowels appear to have been the sales warehouse driver of her frequent urination and possibly leaking, because now that her bowels are regular her urinatioin voiding times have been more regular, her sleeping has improved (wake 1x /night), and she is not leaking after voiding except she thinks she might if there was extreme cold weather conditions. PF strength assessment doesn't appear necessary at this time due to pt's + response to therapy thus far; therefore will hold assessment (pt uncomfortable with thought of assessment). Pt agreeable to learn exercises that will both stretch and strengthen (Kegels ) her PF, and if symptoms return that she is not able to manage she will return for a physical assessment in the future. Physical Therapy Plan Frequency and Duration Frequency of Treatment 1x/Week Plan of Care Start Date 11/19/20 Plan of Care End Date 02/17/21 Next Visit Focus/Plan Next Note Type Treatment Note Next Visit Plan Pt to be seen 1 more visit for review of issued HEP of hip stretches (focus on hip flexor stretches & issue Happy Baby Pose). Review PF coordination with deep breathing, PF training for relaxation and strengthening. Reassess hip mobility and abdominal STM for a L rotated trunk.
--- NOTE | 2020-12-31 17:11 | PT.OTN ---
Current Diagnoses Unspecified urinary incontinence (12/31/20) Frequency of micturition (12/31/20) Physical Therapy Treatment Note PT-OP-A Visit Information Start: 11/13/20 18:46 Freq: Status: Active Protocol: Document 12/31/20 08:16 LRN (Rec: 12/31/20 09:05 LRN [id number]) Out-Patient Physical Therapy Visit Information Visit Information Visit Type Treatment Note Visit Start Time 08:16 Visit Stop Time 08:58 Total Visit Minutes 42 Visit Number 6 Evaluation Information Evaluation Date 11/19/20 Precautions Precautions Neck pain Osteopenia Hypothyroid, PT-OP-B Current Condition Start: 11/13/20 18:46 Freq: Status: Active Protocol: Document 11/19/20 08:16 LRN (Rec: 11/19/20 09:46 LRN [id number]) Current Condition History of Current Condition Onset Date 1 year ago. Current Complaints urinary leakage after voiding and at night, & nighttime voiding. History of Current Condition Gets up 2-3x/night, has a little moisture on her underwear during the night and has dribbling after urinating . Prior Treatments and Tests None. Future Testing and Treatments Planned None Developmental History Developmental History When urinate and wipe, gets a drop or 2 more. Also, at night sometimes she notices a little bit of moisture on her underwear. Also she is getting up multiple times of the night. Has not given childbirth. No pregnancies. Lives [facility] [place] with spouse. Treatment Goals Patient/Caregiver Goals Pt goal is to deal with the urinary dripping and cut down on the amount of time getting up at night and be able to go back to sleep. Prior Functional Status Baseline Function- ADL's Independent Baseline Function- Mobility Independent Current Functional Impairments (Reported) Functional Limitations- ADL's Getting up too many times at night she is fatigued during the day. 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 Personal Factors Other Personal Factors That May Effect Hx of Gall bladder surgery Therapy/Recovery with visible well healed long scar on abdomen. Decreased normal exercise activity level due to COVID pandemic. PT-OP-C Subjective Start: 11/13/20 18:46 Freq: Status: Active Protocol: Document 12/31/20 08:16 LRN (Rec: 12/31/20 09:05 LRN [id number]) OP-PT Subjective Patient Comments Patient Comments Feeling better in intestinal tract and is not leaking. Doing ex's and can tell her R hip needs work and will see a chiropractor for it. Patient Questionnaires Pelvic Pain and Urgency/Frequency Patient Symptom Scale Pelvic Pain Score 9 PT-OP-I Pelvic Floor Start: 11/13/20 18:46 Freq: Status: Active Protocol: Document 12/31/20 08:16 LRN (Rec: 12/31/20 09:05 LRN [id number]) Pelvic Floor Assessment Pelvic Clock Pelvic Clock 12-3 Tightness Pelvic Clock 3-6 Tightness Prolapse Rectocele Grade 1 Perineal Descent Resting Absent Bearing Present Contraction Ability Manual Muscle Testing Left 3 Manual Muscle Testing Right 2 Manual Muscle Testing Anterior 3 Manual Muscle Testing Posterior 3 Muscle Endurance (Seconds) 3 Number of Quick Contractions In 10 2 Seconds PT-OP-J Posture/Palpation/Skin Start: 11/13/20 18:46 Freq: Status: Active Protocol: Document 11/19/20 08:16 LRN (Rec: 11/19/20 09:46 LRN [id number]) Posture Evaluation Position Standing Evaluation View all positions Head/C-Spine Posture Neutral Position L-Spine Posture Increased Lordosis Shoulder Posture (L) Elevated Comments Posture Comments Tight clothing around waist. Gall bladder scar (midline 2 below Xyphoid process, to L lower abdomen), pants slightly rotated left. PT-OP-K Range of Motion Start: 11/13/20 18:46 Freq: Status: Active Protocol: Document 11/19/20 08:16 LRN (Rec: 11/19/20 09:46 LRN [id number]) Lumbar Spine Range of Motion Lumbar Spine Active Degrees Testing Position Standing Flexion 100 Extension 20 Lateral Flexion Left 10 Lateral Flexion Right 10 Comments With Trunk flexion, hip flexion is 60 deg's, With Trunk extension, hip extension is 5 deg's. Hip Goniometric Range of Motion Hip Right Passive Straight Leg Raise 85 Extension 5 Internal Rotation 50 External Rotation 45 Comments + Jame Test Left Passive Straight Leg Raise 85 Extension 5 Internal Rotation 55 External Rotation 30 Comments + Jame Test PT-OP-M Strength Start: 11/13/20 18:46 Freq: Status: Active Protocol: Document 11/19/20 08:16 LRN (Rec: 11/19/20 09:46 LRN [id number]) Trunk Strength Trunk Manual Muscle Testing Testing Position Supine Core Stabilization Pt able to stabilize core from rotation with MMT of LE's. Hip Strength Hip Manual Muscle Testing Right Flexion (L2) 3+ Fair+ Extension (S1) 3+ Fair+ Abduction 3 Fair Adduction 5 Normal External Rotation 5 Normal Internal Rotation 5 Normal Left Flexion (L2) 3+ Fair+ Extension (S1) 3+ Fair+ Abduction 4+ Good+ Adduction 5 Normal External Rotation 5 Normal Internal Rotation 5 Normal PT-OP-Q Treatments Start: 11/13/20 18:46 Freq: Status: Active Protocol: Document 12/31/20 08:16 LRN (Rec: 12/31/20 09:05 LRN [id number]) Therapeutic Exercises Supine Exercises Single BKFO hip AD/PF Supine Exercise Name PF strnegthenging Side right PF contractions Supine Exercise Name ........ Fig 4 stretch Supine Exercise Name Fig 4 stretch Side bilateral Reps/Minutes 8' Comments Extra time for review Happy Baby Pose Supine Exercise Name Happy Baby Pose stretch Reps/Minutes 2' Comments Extra time for training of max stretch Deep Breathing Supine Exercise Name Deep Breathing Reps/Minutes 6' Comments Used verbal, phys, visual feedback for training Standing Exercises Hip Flexor stretch Standing Exercise Name Hip Flexor stretch Reps/Minutes 6' Comments correction of form Self-Care/Home Management Treatment Education Patient Education Home Exercise Program Other Education Discussed pt's HEP, digestion, urination/leakage, things to watch for (too tight; therefore needs relaxation of PF) Activities Self-Care/Home Management Activities Issued & reviewed: *Happy Baby pose. PT-OP-T Assessment and Plan Start: 11/13/20 18:46 Freq: Status: Active Protocol: Document 12/31/20 08:16 LRN (Rec: 12/31/20 09:05 N [id number]) Physical Therapy Assessment Goals Four Impairment Difficulty getting back to sleep after nighttime urination. Short Term Goal (STG) Educate pt on deep breathing relaxation techniques for pt to be able to return to sleep after getting up to urinate at nighttime. STG Duration 12/29/19 (12/18/20: MET GOAL) Custodial Goal (LTG) Pt will be able to return to sleep after nighttime voiding with less mental fatigue in the daytime due to lack of sleep from nighttime voiding. LTG Duration 02/17/21 (12/18/20: MET GOAL ) Three Impairment Nighttime sleep disturbance (2 -3x/night) Short Term Goal (STG) Pt educated in foods/drinks to avoid and in urinary delay technique for bladder retraining. STG Duration 12/29/19 (11/26/20: MET GOAL) Custodial Goal (LTG) Decrease nighttime frequency to no more than 1x/night. (12/31/20: Getting up 1x/ during 8 hr night). LTG Duration 02/17/21 (12/31/20: MET GOAL ) Two Impairment Urinary dribbling after initial voiding. Short Term Goal (STG) Educate pt in PF relaxation during voiding for full voiding after urinating to eliminate urinary dribbling on standing immediately after urinating. (12/18/20: Pt feels the only time she may dribble is if she comes into house after extreme cold) STG Duration 12/29/19 (12/18/20: MET GOAL) Custodial Goal (LTG) PF strength no less than 4/5 with pt no longer leaking at nighttime. (12/31/20: PF strength is 3/5 except R lateral wall is 2/5) LTG Duration 02/17/21 (12/31/20: NOT MET) One Impairment Pt lacks appropriate self care HEP. Orthopedic Tech Goal (LTG) Pt will be independent in a self care HEP. Issued: HEP: Diaphragmatic breathing , * Bowel Program, * Self bowel massage. EDUC: *Foods & Beverages/ Bladder Diet Theories/ Suggestions (example-bladder irritatants), * Bowel Program, * Pelvic anatomy, * Self bowel massage. *I/S pt to increase doing Bowel massage morning and 1 hr after eating & inbetween as often as needed . SUPINE: *Hip fig 4 stretch, * Lateral hip stretch, *Hip flexor stretch, *Happy Baby pose. STANDING: Hip flexor stretch LTG Duration 02/17/21 (12/31/20: MET GOAL) Assessment Summary Assessment Most goals met. LTG #2 was not met for PF strength of 4/5. Pt had weakness of the R lateral wall with strength graded 2/5. Pt demonstrated not only weakness but decreased endurance with pt able to hold a PF contraction 3 secs and was able to do 2 quick flicks prior to fatigue. Partly to blame for her PF weakness is that she is not able to relax her PF very well ; therefore tightness is a reason for her PF weakness. The pt is aware of her PF being too tight and will focus on making sure she is able to relax her PF between PF contraction ex's to improve the R lateral wall strength. The pt's hip mobility is improving in symmetry and she plans on receiving physician assistant primary care to help with her LBP, which will hopefully help her hip mobility restrictions on the R side. She is able to perform a proper deep breath and has a good understanding how she should use her breathing to assist with PF contractions and importance with transfers. It does appear that her occasional bowel dysfunction directly affects her urinary frequency sometimes and that she has a small rectocele, indicating weakness of her posterior PF. The pt's symptoms have greatly diminished and she feels ready to be placed on a HEP. Physical Therapy Plan Discharge Physical Therapy Discharge Comments Most goals met. The pt may experience episodes of urinary leakage in the future that may be related to PF tightness vs weakness. If this happens I would recommend return to physical therapy for assessment and PF rehabilitation. Thank you for your referral.
== END 2021-01-15 11:44 | disposition home or self-care (01) ==
LOC: PHYS 08:15
PROVIDERS: PCP Nurse Practitioner; Referring Provider Nurse Practitioner; Visit Provider Nurse Practitioner
DX: R32 Unspecified urinary incontinence (principal); R35.0 Frequency of micturition
CPT/HCPCS: 97110; 97162; 97535

== ENCOUNTER → 2021-05-13 08:56 | Outpatient (CLI) | payer OTHER, SELFPAY ==
[2021-05-13 09:59] LABS: Alanine Aminotransferase 33 IU/L (<35); Albumin 3.8 g/dL (3.5-5.0); Albumin Globulin Ratio 1.5 (1.0-2.8); Alkaline Phosphatase 59 U/L (38-126); Aspartate Aminotransferase 30 IU/L (14-36); BUN Creatinine Ratio 31.8 (6-22); Bilirubin Total 0.6 mg/dL (0.2-1.3); Blood Urea Nitrogen 21 mg/dL (7-17); Calcium 9.4 mg/dL (8.4-10.2); Carbon Dioxide 29 mmol/L (22-32); Chloride 104 mmol/L (98-107); Cholesterol 178 mg/dL (140-199); Estimated Glomerular Filt Rate > 60.0 mL/min (>60); Globulin 2.6 g/dL (1.7-4.1); Glucose 89 mg/dL (80-110); HDL Cholesterol 63 mg/dL (40-60); HEMOLYSIS < 15 (0-50); LDL Cholesterol Calculated 104 mg/dL (<100); Potassium 4.3 mmol/L (3.4-5.1); Sodium 138 mmol/L (137-145); Total Protein 6.4 g/dL (6.3-8.2); Triglycerides 55 mg/dL (35-150)
[2021-05-13 10:29] LABS: Thyroid Stimulating Hormone 0.088 uIU/mL (0.47-4.68)
== END ==
PROVIDERS: PCP Nurse Practitioner; Referring Provider Nurse Practitioner; Visit Provider Nurse Practitioner
DX: E03.9 Hypothyroidism, unspecified (principal); E78.5 Hyperlipidemia, unspecified; Z79.899 Other long term (current) drug therapy
CPT/HCPCS: 36415; 80053; 80061; 84443

== ENCOUNTER → 2021-08-26 08:30 | Outpatient (CLI) | payer OTHER, SELFPAY | PROVIDERS: PCP Nurse Practitioner; Referring Provider Nurse Practitioner; Visit Provider Nurse Practitioner | DX: E03.9 Hypothyroidism, unspecified (principal); Z79.899 Other long term (current) drug therapy | CPT/HCPCS: 36415; 84443 ==

== ENCOUNTER → 2021-09-06 10:27 | Outpatient (CLI) | payer OTHER, SELFPAY ==
--- NOTE | 2021-09-06 | DI.MG.S_ITS ---
BILATERAL DIGITAL SCREENING MAMMOGRAM 3D/2D WITH CAD: 09/06/2021 CLINICAL: Routine screening. Comparison is made to exams dated: 08/06/2020 mammogram - [facility], 12/03/2018 mammogram, and 12/01/2017 mammogram - [facility]. There are scattered fibroglandular elements in both breasts. Current study was also evaluated with a Computer Aided Detection (CAD) system. There is a mole marker on the right breast. No significant masses, calcifications, or other findings are seen in either breast. There has been no significant interval change. IMPRESSION: NEGATIVE There is no mammographic evidence of malignancy. A 1 year screening mammogram is recommended. This exam was interpreted at Station ID: [id number]. NOTE: For mammograms, a report in lay terms will be sent to the patient. Approximately 15% of breast malignancies will not be visualized mammographically. In the management of a palpable breast mass, a negative mammogram must not discourage biopsy of a clinically suspicious lesion. Electronically Signed By: Onesimo martinez/vinicio:09/06/2021 12:34:32 letter sent: Normal Exam ACR BI-RADS Category 1: Negative [id number]
== END ==
PROVIDERS: PCP Nurse Practitioner; Referring Provider Nurse Practitioner; Visit Provider Nurse Practitioner
DX: Z12.31 Encounter for screening mammogram for malignant neoplasm of breast (principal)
CPT/HCPCS: 77063; 77067

== ENCOUNTER → 2021-10-29 09:35 | Outpatient (CLI) | payer OTHER, SELFPAY ==
[2021-10-29 10:50] LABS: COVID19 -Nasal RAPID Negative (Negative)
== END ==
PROVIDERS: PCP Nurse Practitioner; Visit Provider Surgery
DX: Z01.812 Encounter for preprocedural laboratory examination (principal); Z20.822 Contact with and (suspected) exposure to COVID-19
CPT/HCPCS: 87635; C9803

== ENCOUNTER 2021-11-01 12:01 | Day surgery (SDC) | payer OTHER, SELFPAY ==
[2021-11-01 12:24] VITALS: BMI 30.9
[2021-11-01 12:30] VITALS: BP 113/70; PULSE 97; RESP 16; TEMP 36.3; O2SAT 97
[2021-11-01] MEDS: LACTATED RINGERS 1,000 ML 42 ML IV (12:42)
--- NOTE | 2021-11-01 12:54 | P.HP_ITS ---
History of Present Illness History of Present Illness Date Patient Seen: 11/01/21 Time Patient Seen: 12:54 Chief complaint: DX COLONOSCOPY Narrative: H/o polyps, last scope was 7 years. No family history for colon cancer. Patient History Medical History Cardiac murmur, unspecified Excess ear wax Hyperlipidemia LDL goal <100 Hyperlipidemia LDL goal <70 Hypothyroidism Infection, fungal, left foot Malaria (~1959) Measles (~1957) Mixed hyperlipidemia Mumps (~1957) Osteopenia after menopause Osteoporosis without current pathological fracture Plantar warts (~1999) Post-menopausal osteoporosis Skin problem (~2016) Urinary frequency Urinary incontinence Surgical History Anesthesia History of appendectomy (~1954) History of cholecystectomy (~1982) History of hand surgery (~1990) History of removal of cyst (~2014) History of surgery (~1984) Hx of tonsillectomy Family & Social History Family History Father Prostate cancer History of heart disease Mother Mental health problem Brother History of heart bypass surgery History of heart disease Family/Other History of heart disease Grandmother No problems noted. Social History: household members spouse Tobacco & Substance use: Smoking Status Never smoker alcohol intake frequency a few times a week Substance Use Type does not use Meds Home Medications and Allergies Home Medications Medication Instructions Recorded Confirmed Type atorvastatin 40 mg tablet 40 mg PO BEDTIME #90 tab 05/25/21 11/01/21 Rx thyroid (pork) 60 mg tablet See Rx Instructions PO .COMPLEX 08/26/21 11/01/21 Rx ([place] Thyroid) #180 tab Allergies Allergy/AdvReac Type Severity Reaction Status Date / Time Sulfa (Sulfonamide AdvReac Mild DISORIENTED Verified 11/01/21 12:13 Antibiotics) Exam Vital Signs (past 8 hours): - 11/01/21 12:30 Temperature 97.4 F L Pulse Rate 97 H Respiratory Rate 16 Blood Pressure 113/70 Pulse Oximetry 97 Oxygen Delivery Method Room Air Const General: cooperative and healthy appearing HENNM Head: normal to inspection Eyes Sclera: sclerae normal Neck Neck: trachea midline Chest Chest: normal inspection of the chest Resp Effort & Inspection: normal respiratory effort and able to speak in complete sentences Auscultation: clear to auscultation bilaterally Cardio Palpation: normal PMI Rate: regular rate Rhythm: regular rhythm GI Inspection: normal to inspection Skin General: atrophy Neuro General: patient alert, patient awake and patient oriented x3 Cognition: normal cognition Psych Appearance: grossly normal Judgment: judgment good Assessment & Plan Assessment & Plan narrative: H/o colon polyps with last scope 6-7 years ago. Plan: colonoscopy with sedation COVID-19 COVID-19 status: Negative Time Spent With Patient Critical Care time: I spent a total of [] minutes of critical care time on this patient's care today; this time is exclusive of procedural time.
[2021-11-01] MEDS: MIDAZOLAM 5 MG/5 ML VIAL IV (13:11)
[2021-11-01] MEDS: fentaNYL 250 MCG/5 ML INJ IV (13:14)
--- NOTE | 2021-11-01 13:23 | PM.OP.ENDO ---
Operative Date/Time/Diagnoses Date of procedure: 11/01/21 Time of procedure: 13:23 Pre-op diagnosis: h/o colon polyps. Post-op diagnosis: same Procedure & Clinicians Study performed: Colonoscopy in Same procedure as scheduled: Yes Indications: History of colon polyps Surgeon: Clarita Brown Procedure Notes SCOAP/Timeout: Done Procedure in detail: Prep diagnosis: History of colon polyps Postop diagnosis: Same Operative procedure: Colonoscopy with moderate sedation Surgeon: Ysabel Brown MD Anesthetic: 150 micro g fentanyl 4 mg Versed Findings: Colón diverticulosis. No polyps Procedure: Patient placed in lateral position. Scope inserted into the rectum after rectal exam showed no mass good tone. Scope was advanced to the ileocecal valve with minimal difficulty and under direct vision. Insufflation extraction of the scope including retroflex had the above findings. Impression: Large scattered diverticuli throughout the colon with sparing of the cecum. No polyps identified Plan: Repeat colonoscopy in 5 years for screening purposes. Sedation minutes: 17 Findings: diverticulosis Specimen(s): none sent Complications: none Post-procedure Recommendations: Colonscopy in 5 years Follow up: as needed Disposition: PACU
[2021-11-01 13:28] VITALS: BP 98/57; PULSE 64; RESP 10; TEMP 37.1; O2SAT 94
[2021-11-01 13:33] VITALS: BP 103/54; PULSE 63; RESP 14; O2SAT 94
[2021-11-01 13:38] VITALS: BP 92/49; PULSE 61; RESP 14; O2SAT 94
[2021-11-01 13:43] VITALS: BP 111/69; PULSE 62; RESP 12; O2SAT 97
[2021-11-01 14:14] VITALS: BP 121/77; PULSE 59; RESP 16; TEMP 36.1; O2SAT 97
== END 2021-11-01 14:30 | disposition home or self-care (01) ==
PROVIDERS: PCP Nurse Practitioner; Referring Provider Surgery; Visit Provider Surgery
PROC: 0DJD8ZZ Inspection of Lower Intestinal Tract, Via Natural or Artificial Opening Endoscopic (ICD-10-PCS; CPT 45378; principal; 2021-11-01 13:00)
DX: Z12.11 Encounter for screening for malignant neoplasm of colon (principal); Z86.010 Personal history of colon polyps; K57.30 Diverticulosis of large intestine without perforation or abscess without bleeding; E78.5 Hyperlipidemia, unspecified; E03.9 Hypothyroidism, unspecified
CPT/HCPCS: G0105; 99152; J2250; J3010

== ENCOUNTER → 2022-07-19 08:29 | Outpatient (CLI) | payer OTHER, SELFPAY ==
[2022-07-19 09:24] LABS: Alanine Aminotransferase 35 IU/L (<35); Albumin 3.9 g/dL (3.5-5.0); Albumin Globulin Ratio 1.2 (1.0-2.8); Alkaline Phosphatase 54 U/L (38-126); Aspartate Aminotransferase 35 IU/L (14-36); BUN Creatinine Ratio 19.5 (6-22); Bilirubin Total 0.6 mg/dL (0.2-1.3); Blood Urea Nitrogen 15 mg/dL (7-17); Calcium 8.7 mg/dL (8.4-10.2); Carbon Dioxide 30 mmol/L (22-32); Chloride 103 mmol/L (98-107); Cholesterol 170 mg/dL (140-199); Estimated Glomerular Filt Rate > 60 mL/min (>60); Globulin 3.2 g/dL (1.7-4.1); Glucose 96 mg/dL (80-110); HDL Cholesterol 48 mg/dL (40-60); HEMOLYSIS < 15 (0-50); LDL Cholesterol Calculated 108 mg/dL (<100); Potassium 4.3 mmol/L (3.4-5.1); Sodium 140 mmol/L (137-145); Total Protein 7.1 g/dL (6.3-8.2); Triglycerides 68 mg/dL (35-150)
[2022-07-19 10:16] LABS: Thyroid Stimulating Hormone 1.32 uIU/mL (0.47-4.68)
== END ==
PROVIDERS: PCP Nurse Practitioner; Referring Provider Nurse Practitioner; Visit Provider Nurse Practitioner
DX: E78.5 Hyperlipidemia, unspecified (principal); E03.9 Hypothyroidism, unspecified; Z79.899 Other long term (current) drug therapy
CPT/HCPCS: 36415; 80053; 80061; 84443

== ENCOUNTER → 2022-09-08 10:02 | Outpatient (CLI) | payer OTHER, SELFPAY ==
--- NOTE | 2022-09-08 10:03 | DI.MG.S_ITS ---
BILATERAL DIGITAL SCREENING MAMMOGRAM 3D/2D WITH CAD: 09/08/2022 CLINICAL: Routine screening. Comparison is made to exams dated: 09/06/2021 mammogram, 08/06/2020 mammogram - [facility], and 12/03/2018 mammogram - [facility]. There are scattered areas of fibroglandular density in both breasts (category b / 25%-50% glandular tissue). Current study was also evaluated with a Computer Aided Detection (CAD) system. There are mole markers on the right breast. There is a mole marker on the left breast. No significant masses, calcifications, or other findings are seen in either breast. There has been no significant interval change. IMPRESSION: NEGATIVE There is no mammographic evidence of malignancy. A 1 year screening mammogram is recommended. Based on the Tyrer Cuzick model (a risk assessment model) the patient's lifetime risk is 4.1% and her 10 year risk is 3.7%. According to the ACR, ACS, and NCCN guidelines, an annual breast MRI exam along with mammogram is recommended if the patient's lifetime risk is 20% or greater. This exam was interpreted at Station ID: [id number]. NOTE: For mammograms, a report in lay terms will be sent to the patient. Approximately 15% of breast malignancies will not be visualized mammographically. In the management of a palpable breast mass, a negative mammogram must not discourage biopsy of a clinically suspicious lesion. Electronically Signed By: Chinmay carranza/vinicio:09/08/2022 14:33:26 letter sent: Normal Exam ACR BI-RADS Category 1: Negative 3341F
== END ==
PROVIDERS: PCP Nurse Practitioner; Referring Provider Nurse Practitioner; Visit Provider Nurse Practitioner
DX: Z12.31 Encounter for screening mammogram for malignant neoplasm of breast (principal); M81.0 Age-related osteoporosis without current pathological fracture; Z78.0 Asymptomatic menopausal state
CPT/HCPCS: 77063; 77067; 77080

== ENCOUNTER → 2023-04-17 06:58 | Outpatient (CLI) | payer OTHER, SELFPAY ==
--- NOTE | 2023-04-17 06:59 | DI.ECHO.S_ITS ---
[facility] +---------+ : : [address] : : [place], [place] : : : : [id number] : : : : Phone: [phone]---------+ Echocardiogram Report + + :Name: NIRALI CLEARY Study Date: 04/17/2023 Height: 63 in : :[facility] ReadingLocation: Weight: 180 lb : : Gender: Female BSA: 1.8 m2 : :: 1950 Age: 72 yrs BP: 139/81 mmHg: :Reason For Study: Murmur : :Ordering Physician: Jae, : :Tyler Performed By: Brigette Malik : :Referring: TYLER BOOKER : + + Interpretation Summary 1) Normal left ventricular thickness, size, wall motion, and systolic function (EF 60-65%). 2) Normal right ventricular size and function. 3) There is mild aortic stenosis (valve area 1.9cm2, mean gradient 11mmHg, severity ratio 0.76). 4) The ascending aorta is mildly enlarged at 4.2cm. 5) No prior Echo available for comparison. Procedure: A two-dimensional transthoracic echocardiogram with color flow and Doppler was performed. The study quality was technically adequate. There is no prior echocardiogram noted for this patient. The patient was in normal sinus rhythm during the exam. Left Ventricle: The left ventricle is normal in size and wall thickness. The ejection fraction is estimated to be 60-65%. Left ventricular systolic function appears normal without focal wall motion abnormalities. Diastolic parameters suggest a relaxation abnormality of the left ventricle, consistent with probable normal filling pressures. Right Ventricle: The right ventricle is normal size. The right ventricular systolic function is normal. Atria: The left atrial size is normal. Right atrial size is normal. There is no Doppler evidence for an interatrial shunt. Mitral Valve: The mitral valve is normal. There is mild mitral annular calcification. There is no mitral valve stenosis. There is trace mitral regurgitation. Aortic Valve: The aortic valve is trileaflet. The aortic valve opens well. There is mild aortic valve sclerosis. The peak aortic velocity is 2.20 m/sec. The aortic valve mean gradient is 11 mmHg. There is mild aortic stenosis. No aortic regurgitation is present. Tricuspid Valve: The tricuspid valve is normal. There is no tricuspid stenosis. There is trace tricuspid regurgitation. The right ventricular systolic pressure is estimated to be at least 19 mmHg based on an estimated right atrial pressure of 3 mm Hg. Pulmonic Valve: The pulmonic valve leaflets are thin and pliable; valve motion is normal. There is no pulmonic valvular stenosis. There is no pulmonic valvular regurgitation. Great Vessels: The aortic root is normal size. The ascending aorta is mildly enlarged. The pulmonary artery is normal size. The IVC is of normal diameter and collapses greater than 50% with a sniff. This suggests a low right atrial pressure of 3 mm Hg. Pericardium/ Pleura There is no pericardial effusion. There is no pleural effusion. MMode/2D Measurements & Calculations LVIDd: 4.5 cm LVOT diam: 1.8 cm LVIDs: 3.0 cm Ao root diam: 2.9 cm FS: 33.3 % asc Aorta Diam: 4.2 cm EPSS: 0.50 cm IVSd: 1.1 cm LVPWd: 0.80 cm LV salazar. diameter/BSA (cm/m^2): 2.4 LV sys. diameter/BSA (cm/m^2): 1.6 LA A2 area: 17.3 cm2 RA long axis: 5.1 cm LA A4 area: 16.3 cm2 RA area: 13.0 cm2 LA length (vol): 5.3 cm RA vol: 28.0 ml LA vol: 45.0 ml RA : 15.1 ml/m2 LA vol index: 24.3 ml/m2 RVD1 (basal): 3.3 cm LVLs ap4: 5.3 cm LVLd ap2: 6.9 cm TAPSE_phl: 2.1 cm LVLs ap2: 5.7 cm Doppler Measurements & Calculations Ao V2 max: 213.5 cm/sec LVOT Max Abdirahman: 157.5 cm/sec Ao V2 mean: 151.0 cm/sec LV V1 max P.9 mmHg Ao max P.0 mmHg LV V1 VTI: 34.0 cm Ao mean P.5 mmHg KYE(I,D): 1.9 cm2 Ao V2 VTI: 44.5 cm KYE(V,D): 1.9 cm2 sev ratio: 0.76 KYE indexed to BSA (cm^2/m^2): 1.0 MV E max abdirahman: 76.2 cm/sec TR max abdirahman: 205.0 cm/sec MV A max abdirahman: 96.5 cm/sec TR max P.8 mmHg MV E/A: 0.79 PA V2 max: 153.0 cm/sec Med Peak E' Abdirahman: 6.3 cm/sec PA V2 mean: 101.0 cm/sec E/E' med: 12.1 PA mean P.0 mmHg Lat Peak E' Abdirahman: 8.5 cm/sec PA pr(Accel): 45.7 mmHg E/E' lat: 9.0 E/e' average: 10.5 MV dec time: 0.20 sec SV(LVOT): 86.4 ml AV VR_phl: 0.74 KYE(VTI)/BSA_phl: 1.1 MV P1/2t-pr_phl: 58.0 msec Reading Physician:01:57 PM
== END ==
PROVIDERS: PCP Nurse Practitioner; Referring Provider Nurse Practitioner Family; Visit Provider Nurse Practitioner Family
DX: I34.81 Nonrheumatic mitral (valve) annulus calcification (principal); I35.0 Nonrheumatic aortic (valve) stenosis; R01.1 Cardiac murmur, unspecified; R60.9 Edema, unspecified; I77.89 Other specified disorders of arteries and arterioles
CPT/HCPCS: 93306

== ENCOUNTER → 2023-09-11 09:29 | Outpatient (CLI) | payer OTHER, SELFPAY ==
[2023-09-11 11:14] LABS: Alanine Aminotransferase 32 IU/L (<35); Albumin 3.9 g/dL (3.5-5.0); Albumin Globulin Ratio 1.5 (1.0-2.8); Alkaline Phosphatase 53 U/L (38-126); Aspartate Aminotransferase 30 IU/L (14-36); BUN Creatinine Ratio 24.7 (6-22); Bilirubin Total 0.8 mg/dL (0.2-1.3); Blood Urea Nitrogen 18 mg/dL (7-17); Calcium 9.6 mg/dL (8.4-10.2); Carbon Dioxide 28 mmol/L (22-32); Chloride 102 mmol/L (98-107); Estimated Glomerular Filt Rate > 60 mL/min (>60); Globulin 2.6 g/dL (1.7-4.1); Glucose 96 mg/dL (80-110); HDL Cholesterol 63 mg/dL (40-60); HEMOLYSIS < 15 (0-50); Potassium 4.3 mmol/L (3.4-5.1); Sodium 136 mmol/L (137-145); Total Protein 6.5 g/dL (6.3-8.2); Triglycerides 65 mg/dL (35-150)
[2023-09-11 11:29] LABS: Vitamin D 25 Hydroxy (D3) 35.5 ng/mL (30.0-100.0)
[2023-09-11 11:30] LABS: Cholesterol 199 mg/dL (140-199); LDL Cholesterol Calculated 123 mg/dL (<100)
[2023-09-11 11:44] LABS: Thyroid Stimulating Hormone 0.822 uIU/mL (0.47-4.68)
== END ==
PROVIDERS: PCP Nurse Practitioner; Referring Provider Nurse Practitioner; Visit Provider Nurse Practitioner
DX: M81.0 Age-related osteoporosis without current pathological fracture (principal); E78.5 Hyperlipidemia, unspecified; E03.9 Hypothyroidism, unspecified; Z79.899 Other long term (current) drug therapy
CPT/HCPCS: 36415; 80053; 80061; 82306; 84443

== ENCOUNTER → 2023-09-18 08:36 | Outpatient (CLI) | payer OTHER, SELFPAY ==
--- NOTE | 2023-09-18 | DI.MG.S_ITS ---
BILATERAL DIGITAL SCREENING MAMMOGRAM 3D/2D WITH CAD: 09/18/2023 CLINICAL: Routine screening. Comparison is made to exams dated: 09/08/2022 mammogram, 09/06/2021 mammogram, and 08/06/2020 mammogram - [facility]. There are scattered areas of fibroglandular density in both breasts (category b / 25%-50% glandular tissue). Current study was also evaluated with a Computer Aided Detection (CAD) system. No significant masses, calcifications, or other findings are seen in either breast. There has been no significant interval change. IMPRESSION: NEGATIVE There is no mammographic evidence of malignancy. A 1 year screening mammogram is recommended. Based on the Tyrer Cuzick model (a risk assessment model) the patient's lifetime risk is 3.3% and her 10 year risk is 3.3%. According to the ACR, ACS, and NCCN guidelines, an annual breast MRI exam along with mammogram is recommended if the patient's lifetime risk is 20% or greater. This exam was interpreted at Station ID: [id number]. NOTE: For mammograms, a report in lay terms will be sent to the patient. Approximately 15% of breast malignancies will not be visualized mammographically. In the management of a palpable breast mass, a negative mammogram must not discourage biopsy of a clinically suspicious lesion. Electronically Signed By: Chinmay carranza/vinicio:09/18/2023 09:45:09 letter sent: Normal Exam ACR BI-RADS Category 1: Negative 3341F
== END ==
PROVIDERS: PCP Nurse Practitioner; Referring Provider Nurse Practitioner; Visit Provider Nurse Practitioner
DX: Z12.31 Encounter for screening mammogram for malignant neoplasm of breast (principal)
CPT/HCPCS: 77063; 77067

== ENCOUNTER → 2023-12-14 07:04 | Outpatient (CLI) | payer OTHER, SELFPAY ==
[2023-12-14 08:32] LABS: Alanine Aminotransferase 27 IU/L (<35); Albumin 3.8 g/dL (3.5-5.0); Albumin Globulin Ratio 1.3 (1.0-2.8); Alkaline Phosphatase 51 U/L (38-126); Aspartate Aminotransferase 31 IU/L (14-36); BUN Creatinine Ratio 23.4 (6-22); Bilirubin Total 0.6 mg/dL (0.2-1.3); Blood Urea Nitrogen 18 mg/dL (7-17); Calcium 8.8 mg/dL (8.4-10.2); Carbon Dioxide 28 mmol/L (22-32); Chloride 104 mmol/L (98-107); Cholesterol 178 mg/dL (140-199); Estimated Glomerular Filt Rate > 60 mL/min (>60); Globulin 2.9 g/dL (1.7-4.1); Glucose 103 mg/dL (80-110); HDL Cholesterol 56 mg/dL (40-60); LDL Cholesterol Calculated 110 mg/dL (<100); Potassium 4.3 mmol/L (3.4-5.1); Sodium 138 mmol/L (137-145); Total Protein 6.7 g/dL (6.3-8.2); Triglycerides 59 mg/dL (35-150)
[2023-12-14 08:42] LABS: HEMOLYSIS < 15 (0-50)
[2023-12-14 18:08] LABS: Hep C Virus Ab w/Reflex Quant NEGATIVE s/c (NEGATIVE)
== END ==
PROVIDERS: PCP Nurse Practitioner; Referring Provider Nurse Practitioner; Visit Provider Nurse Practitioner
DX: Z11.59 Encounter for screening for other viral diseases (principal); E78.5 Hyperlipidemia, unspecified; R03.0 Elevated blood-pressure reading, without diagnosis of hypertension; Z79.899 Other long term (current) drug therapy
CPT/HCPCS: 36415; 80053; 80061; 86803

== ENCOUNTER → 2023-12-18 12:33 | Outpatient (CLI) | payer OTHER, SELFPAY ==
[2023-12-20 06:17] LABS: Fecal Immunochemical Test Negative (Negative)
== END ==
PROVIDERS: PCP Nurse Practitioner; Referring Provider Nurse Practitioner; Visit Provider Nurse Practitioner
DX: Z12.11 Encounter for screening for malignant neoplasm of colon (principal)
CPT/HCPCS: 82274

== ENCOUNTER 2024-03-15 00:13 | Emergency (ER) | payer OTHER, SELFPAY ==
[2024-03-15 00:21] VITALS: BP 134/72; PULSE 67; RESP 16; TEMP 36.3; O2SAT 97; BMI 32.8
--- NOTE | 2024-03-15 00:32 | ED.LOWEXIN ---
HPI - Extremity Injury (Lower) General Chief Complaint: Extremity Injury, Lower Stated Complaint: cut on rt foot near ankle that wont heal Time Seen by Provider: 03/15/24 00:22 Source: patient Mode of arrival: Ambulatory History of Present Illness HPI Narrative: 73-year-old female who a couple days ago fell and injured her right leg. Has extensive bruising to her upper leg down past her knee into her lower leg. She was not on anticoagulation. She is here because she has had a wound on the outside of her lower leg for approximately 6 months. She was seen her primary doctor. It has not improved during this time. She was never tried any antibiotics. She was scheduled to see Dermatology at the beginning of next month. She was here because she states that last evening she started having increasing discomfort to the wound. It was to the point where even having the sheets of her bed touch it were painful. She was also having swelling in her leg but this is not necessarily new. 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 She is here because of the increase in discomfort on the wound to her right leg. Related Data Home Medications Medication Instructions Recorded Confirmed triamcinolone acetonide 0.1 % 1 applic topical BID 12/19/23 01/01/24 topical cream Previous Rx's Medication Instructions Recorded Estradiol 10mcg Vaginal Sherron See Rx Instructions .Route 07/27/22 .COMPLEX #30 ea atorvastatin 40 mg tablet 60 mg (1.5 x 40 mg) PO DAILY #135 09/18/23 tabs thyroid (pork) 60 mg tablet ([employer] See Rx Instructions .Route 09/27/23 Thyroid) .COMPLEX #135 tabs terbinafine HCl 250 mg tablet 250 mg PO DAILY #90 tabs 12/19/23 cephalexin 500 mg capsule 500 mg PO QID 7 days #28 caps 03/15/24 Allergies Allergy/AdvReac Type Severity Reaction Status Date / Time Sulfa (Sulfonamide AdvReac Mild DISORIENTED Verified 01/01/24 15:07 Antibiotics) Review of Systems Review of Systems Narrative: See HPI Patient History Medical History Toenail fungus Elevated blood pressure reading in office without diagnosis of hypertension Sleep apnea Osteopenia of neck of left femur Osteoporosis of lumbar spine Dyspareunia due to medical condition in female Low libido Esophageal reflux Hyperlipidemia LDL goal <70 Urinary frequency Urinary incontinence Post-menopausal osteoporosis Hyperlipidemia LDL goal <100 Osteoporosis without current pathological fracture Cardiac murmur, unspecified Mixed hyperlipidemia Osteopenia after menopause Infection, fungal, left foot Skin problem (~2016) Plantar warts (~1999) Mumps (~1957) Measles (~1957) Malaria (~1959) Excess ear wax Hypothyroidism Surgical History Hx of tonsillectomy Anesthesia History of removal of cyst (~2014) History of hand surgery (~1990) History of surgery (~1984) History of cholecystectomy (~1982) History of appendectomy (~1954) Family History Father Prostate cancer History of heart disease Mother Mental health problem Brother History of heart bypass surgery History of heart disease Family/Other History of heart disease Grandmother No problems noted. Social History marital status: household members: spouse pets and animals: No education level: college Previous occupational history: Retired, back to work part-time, book keeper at [employer] seatbelt use: always water heater temp set < 120 deg: Yes working smoke detector in home: Yes fire extinguisher in home: Yes carbon monox detector in home: No firearms in home: Yes firearms unloaded and locked: Yes Smoking Status: Never smoker substance use type: does not use during the past year weight has: remained stable well-balanced diet: daily or most days Smoking Status: Never smoker alcohol intake frequency: a few times a week Substance Use Type: does not use Exam Initial Vital Signs Initial Vital Signs: Vital Signs Temperature 97.3 F L 03/15/24 00:21 Pulse Rate 67 03/15/24 00:21 Respiratory Rate 16 03/15/24 00:21 Blood Pressure 134/72 03/15/24 00:21 Pulse Oximetry 97 03/15/24 00:21 Oxygen Delivery Method Room Air 03/15/24 00:21 Skin Other: Extensive ecchymosis to right extremity in her and inner calf muscle. There is a 1 cm round area of a eschar the distal/lateral aspect of her right lower extremity. There is erythema around the area. No induration. Extrem General: edema Course Orders Ordered: Discontinued Medications Cephalexin HCl (Cephalexin 250 Mg Capsule) 500 mg PO NOW ONE Stop: 03/15/24 00:35 Last Admin: 03/15/24 00:37 Dose: 500 mg Documented By: ISAIAS Vital Signs Vital signs: Vital Signs - 8 hr 03/15/24 00:21 Temperature 97.3 F L Pulse Rate 67 Respiratory Rate 16 Blood Pressure 134/72 Pulse Oximetry 97 Oxygen Delivery Method Room Air MDM - Extremity Injury (Lower) MDM Narrative Medical decision making narrative: The wound on her right leg has been present for 6 months. There is some surrounding erythema to the area. She was never been on any antibiotics. She has follow-up with dermatology. I have low suspicion for DVT. I suspect that the extensive bruising in her leg from her fall a couple days who was causing increase in swelling and possibly even the worsening of the neuropathy. Will put her on antibiotics to see if the wound improves however I suspect that it will have minimal effect. Follow-up with dermatology as already scheduled. Discharge Plan Departure Patient Disposition: Home Clinical Impression: Wound of skin, Dyspareunia due to medical condition in female Instructions: Skin Wound Activity Restrictions/Additional Instructions: I do recommend that you keep your appointment with Dermatology that is scheduled for the beginning of next month. Take the antibiotics as directed. You can take Tylenol/ibuprofen for any discomfort. Keep your leg elevated as much as possible. Contact your primary doctor for follow-up. Prescriptions: New cephalexin 500 mg capsule 500 mg PO QID 7 Days Qty: 28 0RF No Action Estradiol 10mcg Vaginal Sherron See Rx Instructions .ROUTE .COMPLEX Qty: 30 2RF Rx Instructions: Insert one sherron vaginally at bedtime for 14 days, then 2-3 times per week atorvastatin 40 mg tablet 60 mg PO DAILY Qty: 135 3RF Rx Instructions: Take 1 1/2 tabs daily for cholesterol. thyroid (pork) [[employer] Thyroid] 60 mg tablet See Rx Instructions .ROUTE .COMPLEX Qty: 135 3RF Dose Instruction: take 1 AND 1/2 tablets by mouth daily ON AN EMTPY STOMACH PRIOR TO FIRST MEAL OF THE DAY Rx Instructions: take 1 AND 1/2 tablets by mouth daily ON AN EMTPY STOMACH PRIOR TO FIRST MEAL OF THE DAY terbinafine HCl 250 mg tablet 250 mg PO DAILY Qty: 90 1RF Rx Instructions: Take 1 tab daily x180 days (6 mos). triamcinolone acetonide 0.1 % cream 1 applic topical BID Referrals: Nadja Ashby ARNP [Primary Care Provider] - Stand Alone Forms: Patient Portal/API
[2024-03-15] MEDS: cephALEXin 250 MG CAPSULE 500 MG PO (00:37)
== END 2024-03-15 00:41 | disposition home or self-care (01) ==
PROVIDERS: Emergency Provider Emergency Medicine; PCP Nurse Practitioner
DX: S81.801A Unspecified open wound, right lower leg, initial encounter (principal); N94.10 Unspecified dyspareunia; W19.XXXA Unspecified fall, initial encounter
CPT/HCPCS: 99283

== ENCOUNTER → 2024-03-22 07:15 | Outpatient (CLI) | payer OTHER, SELFPAY ==
[2024-03-22 08:27] LABS: Alanine Aminotransferase 26 IU/L (<35); Albumin 3.9 g/dL (3.5-5.0); Albumin Globulin Ratio 1.7 (1.0-2.8); Alkaline Phosphatase 56 U/L (38-126); Aspartate Aminotransferase 28 IU/L (14-36); BUN Creatinine Ratio 20.5 (6-22); Bilirubin Total 0.7 mg/dL (0.2-1.3); Blood Urea Nitrogen 18 mg/dL (7-17); Calcium 9.3 mg/dL (8.4-10.2); Carbon Dioxide 31 mmol/L (22-32); Chloride 105 mmol/L (98-107); Estimated Glomerular Filt Rate > 60 mL/min (>60); Globulin 2.3 g/dL (1.7-4.1); Glucose 96 mg/dL (80-110); HEMOLYSIS < 15 (0-50); Potassium 4.4 mmol/L (3.4-5.1); Sodium 137 mmol/L (137-145); Total Protein 6.2 g/dL (6.3-8.2)
== END ==
PROVIDERS: PCP Nurse Practitioner; Referring Provider Nurse Practitioner; Visit Provider Nurse Practitioner
DX: B35.1 Tinea unguium (principal); E78.5 Hyperlipidemia, unspecified
CPT/HCPCS: 36415; 80053

== ENCOUNTER → 2024-07-05 15:18 | Outpatient (CLI) | payer OTHER, SELFPAY ==
--- NOTE | 2024-07-05 15:19 | DI.RAD.S_ITS ---
PROCEDURE: XR DEXA AXIAL SKELETON INDICATIONS: osteoporosis COMPARISON: [facility], CR, XR DEXA AXIAL SKELETON, 09/08/2022, 11:29. [facility], CR, XR DEXA AXIAL SKELETON, 07/28/2020, 13:12. FINDINGS: Lumbar Spine: Bone mineral density 0.764 g/cm2, T score -2.6, previously -2.8. Left Hip: Bone mineral density 0.759 g/cm2, T score -1.5, previously -1.4. Right Hip: Bone mineral density 0.758 g/cm2, T score -1.5, previously -1.6. Fracture Risk Calculation (when applicable): 10-year fracture risk of a major osteoporotic fracture 13% and of a hip fracture 3.4%. (T score greater or equal to -1.0 to: NORMAL) (T score from -1.1 to -2.4: OSTEOPENIA) (T score less than or equal to -2.5: OSTEOPOROSIS) IMPRESSION: 1. Osteoporosis of the lumbar spine. 2. Osteopenia of the hips. 3. 0.8% increase in bone density at the right hip. 4. 1.2% decrease in bone density at the left hip. 5. 4.1% increase in bone density at the lumbar spine. Follow-up guidelines as follows: Osteoporosis: Consider a repeat DEXA and Vertebral Fracture Assessment (VFA) exam in 2 years or sooner if medically necessary, to reassess this patient's status. Osteopenia: Consider a repeat DEXA in 2-3 years to reassess this patient's status, or if there is a new clinical indication. Normal: Consider a repeat DEXA in 5 years or sooner, or if there is a new clinical indication. All treatment decisions require clinical judgment and consideration of individual patient factors, including patient preferences, comorbidities, previous drug use, risk factors not captured in the FRAX model (e.g., frailty, falls, vitamin D deficiency, increased bone turnover, interval significant decline in bone density ) and possible under- or over-estimation of fracture risk by FRAX. In addition, the NOF Guide recommends that FDA-approved medical therapies be considered in postmenopausal women and men age >= 50 years with a: * Hip or vertebral (clinical or morphometric) fracture * T-score of <=-2.5 at the spine or hip * Ten-year fracture probability by FRAX of >= 3% for hip fracture or >=20% for major osteoporotic fracture. People with diagnosed cases of osteoporosis or at high risk for fracture should have regular bone mineral density tests. For patients eligible for Medicare, routine testing is allowed once every 2 years. The testing frequency can be increased to one year for patients who have rapidly progressing disease, those who are receiving or discontinuing medical therapy to restore bone mass, or have additional risk factors. Dictated by: Chong Orosco M.D. on 07/08/2024 at 7:06 Approved by: Chong Orosco M.D. on 07/08/2024 at 7:10
== END ==
LOC: RAD 15:19
PROVIDERS: PCP Family Medicine; Referring Provider Family Medicine; Visit Provider Family Medicine
DX: M81.0 Age-related osteoporosis without current pathological fracture (principal)
CPT/HCPCS: 77080

== ENCOUNTER → 2024-08-06 09:37 | Outpatient (CLI) | payer OTHER, SELFPAY | PROVIDERS: PCP Family Medicine; Referring Provider Dermatology; Visit Provider Surgery | DX: L97.812 Non-pressure chronic ulcer of other part of right lower leg with fat layer exposed (principal); I87.2 Venous insufficiency (chronic) (peripheral); R60.0 Localized edema; B35.9 Dermatophytosis, unspecified; E03.9 Hypothyroidism, unspecified | CPT/HCPCS: 11042; 87070; 87075; 87205; 99203; 99214 ==

== ENCOUNTER → 2024-08-13 13:27 | Outpatient (CLI) | payer OTHER, SELFPAY | PROVIDERS: PCP Family Medicine; Referring Provider Family Medicine; Visit Provider Surgery | DX: L97.812 Non-pressure chronic ulcer of other part of right lower leg with fat layer exposed (principal); R60.0 Localized edema; I87.2 Venous insufficiency (chronic) (peripheral); B35.9 Dermatophytosis, unspecified | CPT/HCPCS: 11042 ==

== ENCOUNTER → 2024-08-20 10:14 | Outpatient (CLI) | payer OTHER, SELFPAY | LOC: WC 10:15 | PROVIDERS: PCP Family Medicine; Referring Provider Family Medicine; Visit Provider Surgery | DX: L97.812 Non-pressure chronic ulcer of other part of right lower leg with fat layer exposed (principal); I87.2 Venous insufficiency (chronic) (peripheral); R60.0 Localized edema; B35.9 Dermatophytosis, unspecified | CPT/HCPCS: 11042 ==

== ENCOUNTER → 2024-08-27 09:24 | Outpatient (CLI) | payer OTHER, SELFPAY | PROVIDERS: PCP Family Medicine; Referring Provider Family Medicine; Visit Provider Surgery | DX: L97.812 Non-pressure chronic ulcer of other part of right lower leg with fat layer exposed (principal); I87.2 Venous insufficiency (chronic) (peripheral); R60.0 Localized edema; R21 Rash and other nonspecific skin eruption; R23.4 Changes in skin texture | CPT/HCPCS: 11042 ==

== ENCOUNTER → 2024-09-03 09:17 | Outpatient (CLI) | payer OTHER, SELFPAY | PROVIDERS: PCP Family Medicine; Referring Provider Family Medicine; Visit Provider Surgery | DX: L97.812 Non-pressure chronic ulcer of other part of right lower leg with fat layer exposed (principal); I87.2 Venous insufficiency (chronic) (peripheral); R60.0 Localized edema | CPT/HCPCS: 11042; 99213 ==

== ENCOUNTER → 2024-09-10 14:18 | Outpatient (CLI) | payer OTHER, SELFPAY | PROVIDERS: PCP Family Medicine; Referring Provider Family Medicine; Visit Provider Surgery | DX: L97.812 Non-pressure chronic ulcer of other part of right lower leg with fat layer exposed (principal); R60.0 Localized edema; I87.2 Venous insufficiency (chronic) (peripheral) | CPT/HCPCS: 29581; 99213 ==

== ENCOUNTER → 2024-09-16 11:59 | Outpatient (CLI) | payer OTHER, SELFPAY ==
--- NOTE | 2024-09-16 12:01 | DI.US.S_ITS ---
PROCEDURE: US VENOUS INSUFFICIENCY LTD INDICATIONS: venous leg ulcer, right leg TECHNIQUE: Real time scanning was performed of the lower extremity venous system, with imaging documentation, as well as Color and pulse Doppler interrogation. COMPARISON: None. FINDINGS: RIGHT LOWER EXTREMITY: The deep veins are normally compressible, and free of intraluminal thrombus. Color and pulse Doppler demonstrate normal intravascular flow. There is normal augmentation with distal compression maneuver. Greater saphenous vein (GSV): Deep vein reflux is noted within the right common femoral artery. Saphenofemoral junction (SFJ): 6 mm. 3.1 seconds. Proximal GSV: 3 mm. No reflux. Mid GSV: 2 mm. No reflux. Distal GSV: 3 mm. No reflux. Calf GSV: 2 mm, and 0.7 seconds. Anterior accessory GSV (AAGSV): 3.1 seconds reflux is present within the proximal anterior accessory greater saphenous vein. Small saphenous vein (SSV): Posterior calf, draining into popliteal vein. Posterior calf: 3 mm. 3.3 seconds Vein of Giacomini (posterior thigh connection between GSV and SSV): Anatomic variant not seen. Coater Associate veins: No reflux. IMPRESSION: 1. No deep vein thrombosis of the right lower extremity. 2. Reflux within the greater saphenous vein at the saphenofemoral junction. 3. Reflux in the anterior accessory greater saphenous vein as above. 4. Reflux within the short saphenous vein. Dictated by: Wanda Roberson M.D. on 09/17/2024 at 10:25 Approved by: Wanda Roberson M.D. on 09/17/2024 at 10:30
== END ==
LOC: US 12:00
PROVIDERS: PCP Family Medicine; Referring Provider Surgery; Visit Provider Surgery
DX: I87.2 Venous insufficiency (chronic) (peripheral) (principal); L97.812 Non-pressure chronic ulcer of other part of right lower leg with fat layer exposed
CPT/HCPCS: 93971

== ENCOUNTER → 2024-09-17 08:59 | Outpatient (CLI) | payer OTHER, SELFPAY | PROVIDERS: Family Provider Family Medicine; PCP Family Medicine; Referring Provider Family Medicine; Visit Provider Surgery | DX: L97.812 Non-pressure chronic ulcer of other part of right lower leg with fat layer exposed (principal); I87.2 Venous insufficiency (chronic) (peripheral); R60.0 Localized edema; E03.9 Hypothyroidism, unspecified | CPT/HCPCS: 11042 ==

== ENCOUNTER → 2024-09-23 10:03 | Outpatient (CLI) | payer OTHER, SELFPAY ==
--- NOTE | 2024-09-23 10:03 | DI.MG.S_ITS ---
BILATERAL DIGITAL SCREENING MAMMOGRAM 3D/2D WITH CAD: 09/23/2024 CLINICAL: Routine screening. Comparison is made to exams dated: 09/18/2023 mammogram, 09/08/2022 mammogram, 09/06/2021 mammogram, 08/06/2020 mammogram - [facility], and 12/03/2018 mammogram - [facility]. There are scattered areas of fibroglandular density (category b / 25%-50% glandular tissue). Current study was also evaluated with a Computer Aided Detection (CAD) system. No significant masses, calcifications, or other findings are seen in either breast. There has been no significant interval change. IMPRESSION: NEGATIVE There is no mammographic evidence of malignancy. A 1 year screening mammogram is recommended. Based on the Tyrer Cuzick model (a risk assessment model) the patient's lifetime risk is 3.0% and her 10 year risk is 0.0%. According to the ACR, ACS, and NCCN guidelines, an annual breast MRI exam along with mammogram is recommended if the patient's lifetime risk is 20% or greater. This exam was interpreted at Station ID: [id number]. NOTE: For mammograms, a report in lay terms will be sent to the patient. Approximately 15% of breast malignancies will not be visualized mammographically. In the management of a palpable breast mass, a negative mammogram must not discourage biopsy of a clinically suspicious lesion. Electronically Signed By: Billie Cornejo M.D., Ph.D. christian/vinicio:09/24/2024 07:54:39 letter sent: Normal Exam ACR BI-RADS Category 1: Negative
== END ==
PROVIDERS: Family Provider Family Medicine; PCP Family Medicine; Referring Provider Family Medicine; Visit Provider Family Medicine
DX: Z12.31 Encounter for screening mammogram for malignant neoplasm of breast (principal)
CPT/HCPCS: 77063; 77067

== ENCOUNTER → 2024-09-24 13:47 | Outpatient (CLI) | payer OTHER, SELFPAY | PROVIDERS: Family Provider Family Medicine; PCP Family Medicine; Referring Provider Family Medicine; Visit Provider Surgery | DX: R60.0 Localized edema (principal); I87.2 Venous insufficiency (chronic) (peripheral) | CPT/HCPCS: 99212; 99213 ==

== ENCOUNTER → 2024-10-14 09:07 | Outpatient (CLI) | payer OTHER, SELFPAY ==
--- NOTE | 2024-10-14 09:09 | DI.MRI.S_ITS ---
PROCEDURE: MR HEAD/BRAIN WO CON INDICATIONS: reporting worsening memory concerns, balance issues, et TECHNIQUE: Non-contrast axial T1 spin echo, axial T2 fast spin echo, sagittal and axial FLAIR, coronal T2 fast spin echo, axial gradient echo, axial diffusion and ADC through the brain. COMPARISON: None. FINDINGS: Image quality: Excellent. CSF spaces: Ventricles appear symmetric in size and shape. Basal cisterns are patent. No extra-axial fluid collections. Brain: No intracranial bleeds or mass effects. There is cerebral volume loss for age. There are periventricular and deep white matter chronic small vessel ischemic changes. Brainstem appears normal. Diffusion-weighted images show no acute infarct. No chronic ischemic insults. Normal intravascular flow voids are present. Skull and face: Calvarial bone marrow is normal in signal. Orbits are normal. Sinuses: Sinuses and mastoids are clear. IMPRESSION: Age-related global volume loss and chronic microvascular ischemic changes. No acute intracranial abnormalities. Dictated by: Domo Goldberg M.D. on 10/14/2024 at 13:34 Approved by: Domo Goldberg M.D. on 10/14/2024 at 13:35
== END ==
PROVIDERS: Family Provider Family Medicine; PCP Family Medicine; Referring Provider Family Medicine; Visit Provider Family Medicine
DX: R41.3 Other amnesia (principal); R26.89 Other abnormalities of gait and mobility
CPT/HCPCS: 70551

== ENCOUNTER → 2024-11-07 07:08 | Outpatient (CLI) | payer MEDICARE, SELFPAY ==
[2024-11-07 08:55] LABS: Alanine Aminotransferase 31 IU/L (<35); Albumin 4.2 g/dL (3.5-5.0); Albumin Globulin Ratio 1.5 (1.0-2.8); Alkaline Phosphatase 47 U/L (38-126); Aspartate Aminotransferase 30 IU/L (14-36); BUN Creatinine Ratio 22.8 (6-22); Bilirubin Total 0.7 mg/dL (0.2-1.3); Blood Urea Nitrogen 18 mg/dL (7-17); Calcium 9.1 mg/dL (8.4-10.2); Carbon Dioxide 29 mmol/L (22-32); Chloride 106 mmol/L (98-107); Cholesterol 182 mg/dL (140-199); Estimated Glomerular Filt Rate > 60 mL/min (>60); Globulin 2.8 g/dL (1.7-4.1); Glucose 102 mg/dL (80-110); HDL Cholesterol 56 mg/dL (40-60); HEMOLYSIS < 15 (0-50); LDL Cholesterol Calculated 113 mg/dL (<100); Potassium 3.9 mmol/L (3.4-5.1); Sodium 138 mmol/L (137-145); Triglycerides 65 mg/dL (35-150)
[2024-11-07 09:22] LABS: Thyroid Stimulating Hormone 0.979 uIU/mL (0.47-4.68)
== END ==
PROVIDERS: Family Provider Family Medicine; PCP Family Medicine; Referring Provider Family Medicine; Visit Provider Family Medicine
DX: E78.5 Hyperlipidemia, unspecified (principal); E03.9 Hypothyroidism, unspecified; R01.1 Cardiac murmur, unspecified
CPT/HCPCS: 36415; 80053; 80061; 84443

== ENCOUNTER → 2025-01-04 11:43 | Outpatient (CLI) | payer MEDICARE, SELFPAY ==
--- NOTE | 2025-01-04 11:45 | DI.RAD.S_ITS ---
PROCEDURE: XR CHEST 2V INDICATIONS: Cough TECHNIQUE: 2 views of the chest were acquired. COMPARISON: None. FINDINGS: Mild bilateral perihilar and lower lobe peribronchial thickening some of which may be related expiratory result with subsegmental atelectasis however bronchitis, bronchopneumonia, viral infection, asthma or other process should be considered. Moderate calcifications of the aortic arch. Mildly elevated/eventrated right hemidiaphragm. Moderate degenerative changes of the thoracic spine. No pneumothorax, no pleural effusion. Cardiopericardial silhouette and pulmonary vasculature within normal limits. IMPRESSION: Mild bilateral peribronchial thickening as discussed above. Follow-up suggested. If symptoms persist or worsen, CT chest could be performed. Dictated by: Ken Zambrano M.D. on 01/04/2025 at 14:45 Approved by: Ken Zambrano M.D. on 01/04/2025 at 14:47
== END ==
PROVIDERS: Family Provider Family Medicine; PCP Family Medicine; Referring Provider Nurse Practitioner Family; Visit Provider Nurse Practitioner Family
DX: R05.9 Cough, unspecified (principal); R91.8 Other nonspecific abnormal finding of lung field
CPT/HCPCS: 71046

== ENCOUNTER → 2025-10-15 08:27 | Outpatient (CLI) | payer MEDICARE, SELFPAY ==
--- NOTE | 2025-10-15 08:28 | DI.MG.S_ITS ---
MM screening mammo BI: 10/15/2025. BI-RADS: 1 CLINICAL: 75-year old female for bilateral screening mammogram. Tyrer-Cuzick lifetime risk of 4.3%. No personal or first-degree family history of breast cancer. PRIOR EXAMS 09/23/2024, 09/18/2023, 09/08/2022, 09/06/2021. MAMMOGRAPHY TECHNIQUE: 2D and 3D (tomosynthesis) digital mammographic views obtained, with additional images as needed for full coverage. Current study was also evaluated with a Computer Aided Detection (CAD) system. DENSITY C. The breasts are heterogeneously dense, which may obscure small masses. MAMMOGRAPHY FINDINGS Bilateral: No suspicious mass, asymmetry, microcalcification, or other abnormality seen. IMPRESSION: * No evidence of malignancy. RECOMMENDATIONS Bilateral * Annual screening mammography. OVERALL ASSESSMENT CATEGORY BI-RADS-1: Negative. The [employer] recommends annual screening mammography beginning at age 40 for women with average risk of breast cancer. ELECTRONICALLY SIGNED: Whitney Riggins M.D. on 10/15/2025 at 12:19:52 PM PT Interpreting Station ID: [id number]
== END ==
LOC: MAMMO 08:28
PROVIDERS: PCP Family Medicine; Referring Provider Family Medicine; Visit Provider Family Medicine
DX: Z12.31 Encounter for screening mammogram for malignant neoplasm of breast (principal); R92.333 Mammographic heterogeneous density, bilateral breasts
CPT/HCPCS: 77063; 77067